=== PATIENT | female | born 1935 | race Caucasian/White ===

== ENCOUNTER 2016-11-28 11:59 | Emergency (ER) | payer MEDICARE, MEDICAID ==
[~2016-11-28] VITALS: Ht 160 cm; Wt 64.5 kg
[~2016-11-28 11:59] MED LIST: ACET325T51 PO; ASPI-973 PO; AZTH50T PO; LACT1CAP44 PO; METO25TA99 PO; PRD1T PO; TRAM50TA2 PO; VERA240T97 PO
[2016-11-28 12:12] VITALS: BP 109/72; PULSE 92; RESP 16; O2SAT 94
--- NOTE | 2016-11-28 12:13 | ED.REPORT ---
HPI-General Illness Date of Service Nov 28, 2016 ED Provider: Scotty Luna.O. An 81 year old female with a history of hypertension, hypothyroidism, A-fib, and PE who presents to the ED via EMS due to vomiting for a few days. Associated symptoms include dizziness, nausea, diarrhea, and headache. Pt complains that she, "can't eat at all." She denies chest pain, abdominal pain, and dysuria. She feels like, "everything is spinning when I sit up." Her dizziness is not associated with head movement, it only occurs when she transitions from lying to standing. She was hospitalized 2 months ago (10/05/16 ) with severe anemia. Pt is a poor historian. Nursing Notes Stated Complaint: WEAKNESS Chief Complaint: Female Abdominal Pain Nursing Notes Reviewed: Yes Allergies: Coded Allergies: penicillin G (Verified Allergy, Severe, 10/05/16) Sulfa (Sulfonamide Antibiotics) (Unverified Allergy, Intermediate, Rash, Itching,, 10/05/16) azithromycin (Unverified Allergy, Intermediate, Rash, 10/05/16) atenolol (Unverified Allergy, Unknown, 10/05/16) doxepin (Unverified Allergy, Unknown, 10/05/16) hydrochlorothiazide (Unverified Allergy, Unknown, 10/05/16) isosorbide (Unverified Allergy, Unknown, 10/05/16) losartan (Unverified Allergy, Unknown, 10/05/16) triamterene (Unverified Allergy, Unknown, 10/05/16) KAIDEN Inhibitors (Unverified Adverse Reaction, Unknown, 10/05/16) labetalol (Unverified Adverse Reaction, Unknown, 10/05/16) nitrofurantoin (Unverified Adverse Reaction, Unknown, Rash, 10/05/16) Uncoded Allergies: ANTIBIOTICS (Allergy, Unknown, UNCLEAR, 05/22/14) Scheduled Aspirin (Aspirin) 81 Mg Tablet 81 MG PO DAILY Azathioprine (Azathioprine) 50 Mg Tablet 50 MG PO DAILY Lactobacillus Acidophilus (Acidophilus Lactobacillus) 1 Each Capsule 2 EACH PO BID take x 7 days (start date 09/28/16) Metoprolol Succinate ER (Metoprolol Succinate ER) 25 Mg Tab.er.24h 25 MG PO DAILY PredniSONE (PredniSONE) 1 Mg Tab 3 MG PO DAILY Verapamil ER (Verapamil ER) 240 Mg Tber 120 MG PO DAILY Scheduled PRN Acetaminophen (Acetaminophen) 325 Mg Tablet 650 MG PO Q4H PRN PRN For Pain Tramadol (Tramadol) 50 Mg Tablet 50 MG PO Q4H PRN PRN For Pain General Time Seen by MD: 12:12 Chief Complaint Vomiting Hx Obtained From: Patient, EMS Arrived By: Ambulance Sudden in Onset?: Yes Onset Occurred: 5 days ago Symptom Duration: Since onset Severity: Current: No pain currently Past Medical History Past Medical History Notes: PCP: Dr. Froy Jama Past Medical History h/o Bilateral pulmonary embolism, diagnosed October 2014, treated with warfarin h/o atrial fibrillation Hypertension Hypothyroidism. Hyperlipidemia. h/o Autoimmune hepatitis, on chronic prednisone and azathioprine therapy Reports: Thyroid disease Past Surgical History bilateral knee surgeries Reports: Cataract surgery Reports: Carpal tunnel Family History CHF Pt's mother, daughter, and son have CAD Reports: Coronary artery disease, Stroke Smoking History Never Smoker Social History Drug Use: Denies drug use Other Social History: Good social support, Local resident Ambulatory Status Independent Review of Systems Full Review of Systems Cardiovascular: Denies: Chest pain GI: Reports: Diarrhea, Nausea, Vomiting, Denies: Abdominal pain Female: Denies: Dysuria Neurologic: Reports: Headache Complete sys rev & neg: except as marked. Physical Exam Vital Signs Vital Signs Date Time Temp Pulse Resp B/P Pulse Ox O2 Delivery O2 Flow Rate FiO2 11/28/16 12:12 36.7 92 16 109/72 94 Room Air Initial VS: Reviewed Head / Eyes: Atraumatic, Normocephalic, PERRL ENT: Mucous membranes moist, Conjunctiva normal, No scleral icterus Neck: Supple, Non-tender, Full range of motion Respiratory: Breath sounds normal, Clear to auscultation, No respiratory distress Cardiovascular: Regular rate & rhythm, Heart sounds normal, Intact distal pulses Abdomen / GI: Soft, Non-tender, No guarding, No rebound, No distention Extremities: Vascular intact, Neuro intact, No swelling, No tenderness Skin: Warm, Dry, No cyanosis General/Constitutional: Cooperative Alertness: Positive: Confused Distress / Hydration: Positive: Dehydration mild Interpretation & Diagnostics Lab Results Interpretation Result Diagram: 11/28/16 1345 11/28/16 1345 Test 11/28/16 13:45 White Blood Count 8.5th/mm3 (3.8-10.1) Red Blood Count 4.59mil/mm3 (3.90-5.20) Hemoglobin 15.1g/dL (12.0-15.6) Hematocrit 46.0% (35.0-46.0) Mean Corpuscular Volume 100.2fL (81-100) Mean Corpuscular Hemoglobin 32.9pg (27.0-35.0) Mean Corpuscular Hemoglobin Concent 32.8% (32.0-37.0) Red Cell Distribution Width 16.4% (12.3-15.4) Platelet Count 222bil/L (150-400) Neutrophils (%) (Auto) 84.5% (40-74) Lymphocytes (%) (Auto) 7.5% (14-46) Monocytes (%) (Auto) 5.9% (4-12) Eosinophils (%) (Auto) 1.3% (0-5) Basophils (%) (Auto) 0.4% (0-3) Sodium Level 138mEq/L (134-144) Potassium Level 4.9mEq/L (3.5-5.2) Chloride Level 99mEq/L (97-108) Carbon Dioxide Level 24mmol/L (18-29) Blood Urea Nitrogen 29mg/dL (8-27) Creatinine 1.07mg/dL (0.57-1.00) Estimat Glomerular Filtration Rate 70mL/min (>59) Glucose Level 91mg/dL (60-99) Calcium Level 9.1mg/dL (8.5-10.1) Magnesium Level 1.9mg/dL (1.6-2.6) Total Bilirubin 0.6mg/dL (0.0-1.2) Aspartate Amino Transf (AST/SGOT) 29U/L (0-50) Alanine Aminotransferase (ALT/SGPT) 13U/L (0-32) Alkaline Phosphatase 57U/L (25-165) Total Protein 7.4g/dL (6.4-8.4) Albumin 3.9g/dL (3.4-5.0) Lipase 22U/L (13-60) Hold Mullins Top Tube Received (Received) Re-Eval/Medical Decision Counseled Regarding: Diagnosis, Lab results, Need for follow-up, When/why to return to ED Discharge & Departure Primary Impression: Diarrhea Disposition: Home Discharge Condition All VS Reviewed: Yes Condition: Stable Referrals: Preston Juarez MD (PCP) Care Transferred to: [facility] Transferred at: 15:00 Scribe Attestation Portion of this note were transcribed by Leon Suazo. I, Dr. Brown, personally performed the history, physical exam, and medical decision-making: I reviewed and confirmed the accuracy for the information in the transcribed note. Signed by: naldo Munoz, 11/28/16 1500 copies to: Preston Juarez MD, Timothy S DO Nov 28, 2016 12:13 LEON SUAZO Nov 28, 2016 12:20
[2016-11-28 13:52] LABS: BASOPHILS % (AUTO) 0.4 % (0-3); EOSINOPHILS % (AUTO) 1.3 % (0-5); MONOCYTES % (AUTO) 5.9 % (4-12); Mean Corpuscular Hemoglobin 32.9 pg (27.0-35.0); Mean Corpuscular Volume 100.2 fL (81-100); NEUTROPHILS % (AUTO) 84.5 % (40-74); Platelet Count 222 bil/L (150-400)
[2016-11-28 14:26] LABS: Magnesium 1.9 mg/dL (1.6-2.6)
[2016-11-28] MEDS ORDERED: 0.9% Sodium Chloride 1,000 ML IV ONE (15:05)
--- NOTE | 2016-11-28 15:25 | DRSVH ---
PROCEDURE: CT BRAIN WITHOUT CONTRAST ([id number]) INDICATIONS: dizziness, falls TECHNIQUE: Noncontrast 4.5 mm thick angled axial sections acquired from the foramen magnum to the vertex, with c oronal reformats. COMPARISON: [facility], CT, BRAIN W/O CONTRAST, 12/14/2012, 19:00. [facility], CT, CT BRAIN WO CON, 10/05/2016, 17:51. FINDINGS: Image quality: Excellent. CSF spaces: Basal cisterns are patent. No extra-axial fluid collections. The ventricles are symmet edwina in size. There is mild cerebral volume loss, with resultant ventricular and sulcal prominence. Brain: No intracranial hemorrhage, mass, or mass effect. There are scattered subcortical, periven tricular and deep white matter hypodensities consistent with moderate chronic small vessel ischemic c hanges. There is intracranial internal carotid artery atherosclerosis. Skull and face: Calvarium and visualized facial bones demonstrate no acute fractures. There is oste openia with heterogeneous appearance of the visualized osseous structures most prominent in the front al bones. Findings are similar to the prior studies. Sinuses: Visualized sinuses and mastoids are clear. IMPRESSION: 1. No acute intracranial abnormality. 2. Moderate chronic white matter small vessel ischemic changes and mild cerebral volume loss. 3. Diffuse osteopenia. Dictated by: Jovany Salinas M.D. on 11/28/2016 at 15:21 Approved by: Jovany Salinas M.D. on 11/28/2016 at 15:24
--- NOTE | 2016-11-28 15:55 | NUR ---
Evaluation completed. Please go to "Notes" then click on "Assessments and Notes" (bottom left corner of screen). Then select appropriate discipline tab on top of screen.
--- NOTE | 2016-11-28 16:48 | DRSVH ---
PROCEDURE: X-RAY CHEST ONE VIEW, PORTABLE ([id number]) INDICATIONS: weakness TECHNIQUE: One view of the chest was acquired. COMPARISON: [facility], CT, CT ABD PELVIS W CON, 10/05/2016, 17:51. [facility], CR, XR CHEST 2VW, 09/05/2016, 16:16. [facility], CR, XR CHEST 2V AP/PA AND LAT, , 8:05 AM. [facility], CR, XR CHEST 1VW (PORTABLE), 10/05/2016, 16:12. FINDINGS: Surgical changes and devices: None. Lungs and pleura: There is a peripheral left basilar opacity consistent with consolidation or pleura l thickening. There is hyperinflation of the lungs with flattening of the hemidiaphragms compatible w ith COPD. there is mild blunting of right costophrenic angle consistent with a small effusion or pleu ral thickening. Mediastinum: Mediastinal contours appear unchanged. Heart size is enlarged. Bones and chest wall: There are multiple healed bilateral rib fractures as well as severe degenerativ e changes in the right shoulder. Overlying soft tissues appear unremarkable. IMPRESSION: 1. Peripheral left basilar opacity consistent with pleural thickening or consolidation. Recommend f ollowup to demonstrate resolution or further evaluation with CT. 2. Findings compatible with COPD redemonstrated. 3. Small right pleural effusion versus pleural thickening. Dictated by: Jovany Salinas M.D. on 11/28/2016 at 16:43 Approved by: Jovany Salinas M.D. on 11/28/2016 at 16:45
[2016-11-28 17:27] VITALS: BP 100/65; PULSE 84; RESP 20; O2SAT 97
[2016-11-28 17:30] LABS: APPEARANCE,URINE CLEAR (CLEAR,HAZY); COLOR,URINE YELLOW (YELLOW); OCCULT BLOOD,URINE LARGE (NEGATIVE); PH,URINE 5.5 (5.0-8.0); UROBILINOGEN,URINE NORMAL (NORMAL)
[2016-11-28] MEDS ORDERED: ONDA8TAB10 PO (19:27)
[2016-11-28 19:39] VITALS: BP 114/76; PULSE 68; RESP 18; O2SAT 96
== END 2016-11-28 19:39 | disposition home or self-care (01) ==
LOC: SED 11:59 → EDBD 11:59 → SED 19:39
DX: R19.7 Diarrhea, unspecified (principal); R53.1 Weakness; F03.90 Unspecified dementia, unspecified severity, without behavioral disturbance, psychotic disturbance, mood disturbance, and anxiety; R42 Dizziness and giddiness; R11.0 Nausea; R51 Headache; I48.91 Unspecified atrial fibrillation; E03.9 Hypothyroidism, unspecified; I10 Essential (primary) hypertension; E78.5 Hyperlipidemia, unspecified; E07.9 Disorder of thyroid, unspecified; Z86.711 Personal history of pulmonary embolism; Z91.81 History of falling; Z79.82 Long term (current) use of aspirin; Z88.0 Allergy status to penicillin; Z88.2 Allergy status to sulfonamides; Z88.1 Allergy status to other antibiotic agents; Z88.8 Allergy status to other drugs, medicaments and biological substances
CPT/HCPCS: 36415; 70450; 71010; 80053; 81001; 83690; 83735; 84484; 85025; 90791; 93005; 96360; 97161; 99285; G8978; G8979; J7030

== ENCOUNTER 2017-05-23 18:16 | Inpatient (IN) | payer MEDICARE, MEDICAID ==
[~2017-05-23] VITALS: Ht 157.5 cm; Wt 63.6 kg
[~2017-05-23 18:16] MED LIST changes: +ONDA8TAB10 PO
[2017-05-23 18:29] VITALS: BP 109/61; PULSE 75; RESP 17; O2SAT 96
--- NOTE | 2017-05-23 19:07 | ED.REPORT ---
HPI-General Illness Date of Service May 23, 2017 ED Provider: Alfonso Camarillo DO Pt is an 82 y/o female w/ a hx of a-fib, HTN, prior PE, presenting to the ED with her daughter c/o SOB onset 1 week ago. She c/o associated dyspnea on exertion, fatigue, increased bilateral lower extremity edema R>L, bilateral calf pain, orthopnea. Pt denies CP, fever, cough. The patient is on oxygen at night. She is taking abx for a UTI currently. She was previously on Warfarin but this was stopped due to an abdominal hematoma and there is no plan of restarting it. She is taking aspirin daily. The patient also takes 20 mg Lasix daily. There is no diagnosed history of COPD. She is followed by Cyndi Rodriguez for cardiology. Nursing Notes Stated Complaint: SWOLLEN LEGS, SHORTNESS OF BREATH, FATIGUE Chief Complaint: General Complaint Nursing Notes Reviewed: Yes Allergies: Coded Allergies: penicillin G (Verified Allergy, Severe, 10/05/16) Sulfa (Sulfonamide Antibiotics) (Unverified Allergy, Intermediate, Rash, Itching,, 10/05/16) azithromycin (Unverified Allergy, Intermediate, Rash, 10/05/16) atenolol (Unverified Allergy, Unknown, 10/05/16) doxepin (Unverified Allergy, Unknown, 10/05/16) hydrochlorothiazide (Unverified Allergy, Unknown, 10/05/16) isosorbide (Unverified Allergy, Unknown, 10/05/16) losartan (Unverified Allergy, Unknown, 10/05/16) triamterene (Unverified Allergy, Unknown, 10/05/16) KAIDEN Inhibitors (Unverified Adverse Reaction, Unknown, 10/05/16) labetalol (Unverified Adverse Reaction, Unknown, 10/05/16) nitrofurantoin (Unverified Adverse Reaction, Unknown, Rash, 10/05/16) Uncoded Allergies: ANTIBIOTICS (Allergy, Unknown, UNCLEAR, 05/22/14) Scheduled Aspirin (Aspirin) 81 Mg Tablet 81 MG PO DAILY Azathioprine (Azathioprine) 50 Mg Tablet 50 MG PO DAILY Ciprofloxacin (Cipro) 500 Mg Tablet 500 MG PO BID Metoprolol Succinate ER (Metoprolol Succinate ER) 25 Mg Tab.er.24h 25 MG PO DAILY PredniSONE (PredniSONE) 1 Mg Tab 3 MG PO DAILY Verapamil ER (Verapamil ER) 240 Mg Tber 120 MG PO DAILY Scheduled PRN Acetaminophen (Acetaminophen) 325 Mg Tablet 650 MG PO Q4H PRN PRN For Pain General Time Seen by MD: 19:05 Chief Complaint Breathing problem Hx Obtained From: Patient, Daughter Arrived By: Walk-in Sudden in Onset?: No Onset Occurred: 1 week ago Symptom Duration: Since onset Severity: Current: No pain currently Severity: Maximum: No pain Past Medical History Past Medical History Notes: PCP: Dr. Mcduffie Monotype Setter: Anastasia Rodriguez Past Medical History h/o Bilateral pulmonary embolism, diagnosed October 2014, treated with warfarin h/o atrial fibrillation Hypertension Hypothyroidism. Hyperlipidemia. Rheumatoid arthritis h/o Autoimmune hepatitis, on chronic prednisone and azathioprine therapy Reports: Thyroid disease Past Surgical History bilateral knee surgeries Reports: Cataract surgery Reports: Carpal tunnel Family History CHF Pt's mother, daughter, and son have CAD Reports: Coronary artery disease, Stroke Smoking History Never Smoker Social History Drug Use: Denies drug use Other Social History: Good social support, Local resident Ambulatory Status Independent Review of Systems Full Review of Systems Constitutional: Reports: Fatigue, Denies: Fever Respiratory: Reports: Shortness of breath, Denies: Non-productive cough Cardiovascular: Reports: Dyspnea on exertion, Edema, Orthopnea, Denies: Chest pain Musculoskeletal: Reports: Extremity pain, Extremity swelling Complete sys rev & neg: except as marked. Physical Exam Vital Signs Vital Signs Date Time Temp Pulse Resp B/P Pulse Ox O2 Delivery O2 Flow Rate FiO2 05/23/17 23:14 89 18 131/89 94 Room Air 05/23/17 18:29 36.6 75 17 109/61 96 Room Air Initial VS: Reviewed, Vital signs normal Head / Eyes: Atraumatic, Normocephalic ENT: Mucous membranes moist, Conjunctiva normal, No scleral icterus Neck: Supple, Full range of motion Abdomen / GI: Soft, Non-tender Skin: Warm, Dry, No cyanosis Neurologic: Alert, Oriented, Nonfocal Psychiatric: Mood/affect normal, Behavior normal, Normal thought content General/Constitutional: Awake, Alert, No acute distress, Cooperative, Not toxic appearing Respiratory / Chest: No respiratory distress, No retractions, No stridor Inspiratory rales bilaterally at bases, L>R Cardiovascular: Heart rate NL, Heart sounds NL, No murmurs Heart Rate / Rhythm: Positive: Irreg irregular rhythm Trace edema bilaterally, R>L Lower Extremity / Pelvis / MS: No deformity, Neurologic intact, Vascular intact Trace edema bilaterally, R>L Calf pain bilaterally, R>L Interpretation & Diagnostics Lab Results Interpretation Result Diagram: 05/25/175 05/25/175 Test 05/23/17 19:50 05/23/17 22:05 Neutrophils (%) (Auto) 78.9% (40-74) Lymphocytes (%) (Auto) 10.0% (14-46) Monocytes (%) (Auto) 8.7% (4-12) Eosinophils (%) (Auto) 2.0% (0-5) Basophils (%) (Auto) 0.2% (0-3) Hemoglobin A1c 5.7% (4.8-5.6) Magnesium Level 2.0mg/dL (1.6-2.6) Total Bilirubin 0.4mg/dL (0.0-1.2) Aspartate Amino Transf (AST/SGOT) 27U/L (0-50) Alanine Aminotransferase (ALT/SGPT) 16U/L (0-32) Alkaline Phosphatase 55U/L (25-165) Troponin T < 0.010ug/L (0.0-0.011) Pro-B-Type Natriuretic Peptide 2071pg/mL (0-738) Total Protein 7.9g/dL (6.4-8.4) Albumin 4.0g/dL (3.4-5.0) Thyroid Stimulating Hormone (TSH) 4.650uIU/mL (0.450-4.500) Urine Color Yellow (YELLOW) Urine Appearance Hazy (CLEAR,HAZY) Urine pH 6.0 (5.0-8.0) Urine Specific [place] 1.010 (1.003-1.035) Urine Protein Tracemg/dL (NEG,TRACE) Urine Glucose (UA) Negativemg/dL (NEGATIVE) Urine Ketones Negativemg/dL (NEGATIVE) Urine Occult Blood Moderate (NEGATIVE) Urine Nitrite Negative (NEGATIVE) Urine Bilirubin Negative (NEGATIVE) Urine Urobilinogen Normalmg/dL (NORMAL) Urine Leukocyte Esterase Trace (NEGATIVE) Urine RBC 11-50/hpf (0-2) Urine WBC 11-50/hpf (0-5) Urine Epithelial Cells Moderate/hpf (NONE-MOD) Urine Crystals None seen (NONE SEEN) Urine Bacteria Few/hpf (NONE-FEW) Urine Hyaline Casts Occasional/lpf (NONE) Urine Granular Casts None seen (NONE SEEN) Urine Waxy Casts None seen (NONE SEEN) Urine Red Blood Cell Casts None seen (NONE SEEN) Urine White Blood Cell Casts None seen (NONE SEEN) Urine Mucus None seen (None Seen) Urine Trichomonas None seen (NONE SEEN) Urine Yeast None (NONE SEEN) Urinalysis Comment None Urine Culture Reflexed Indicated Laboratory Tests 72 Hours Test 05/23/17 19:50 05/23/17 22:05 White Blood Count 8.4th/mm3 (3.8-10.1) Red Blood Count 4.25mil/mm3 (3.90-5.20) Hemoglobin 14.6g/dL (12.0-15.6) Hematocrit 42.5% (35.0-46.0) Mean Corpuscular Volume 100.0fL (81-100) Mean Corpuscular Hemoglobin 34.4pg (27.0-35.0) Mean Corpuscular Hemoglobin Concent 34.4% (32.0-37.0) Red Cell Distribution Width 14.4% (12.3-15.4) Platelet Count 173bil/L (150-400) Neutrophils (%) (Auto) 78.9% (40-74) Lymphocytes (%) (Auto) 10.0% (14-46) Monocytes (%) (Auto) 8.7% (4-12) Eosinophils (%) (Auto) 2.0% (0-5) Basophils (%) (Auto) 0.2% (0-3) Sodium Level 135mEq/L (134-144) Potassium Level 5.1mEq/L (3.5-5.2) Chloride Level 94mEq/L (97-108) Carbon Dioxide Level 24mmol/L (18-29) Blood Urea Nitrogen 40mg/dL (8-27) Creatinine 1.01mg/dL (0.57-1.00) Estimat Glomerular Filtration Rate 75mL/min (>59) Glucose Level 91mg/dL (60-99) Hemoglobin A1c 5.7% (4.8-5.6) Calcium Level 9.2mg/dL (8.5-10.1) Magnesium Level 2.0mg/dL (1.6-2.6) Total Bilirubin 0.4mg/dL (0.0-1.2) Aspartate Amino Transf (AST/SGOT) 27U/L (0-50) Alanine Aminotransferase (ALT/SGPT) 16U/L (0-32) Alkaline Phosphatase 55U/L (25-165) Troponin T < 0.010ug/L (0.0-0.011) Pro-B-Type Natriuretic Peptide 2071pg/mL (0-738) Total Protein 7.9g/dL (6.4-8.4) Albumin 4.0g/dL (3.4-5.0) Thyroid Stimulating Hormone (TSH) 4.650uIU/mL (0.450-4.500) Urine Color Yellow (YELLOW) Urine Appearance Hazy (CLEAR,HAZY) Urine pH 6.0 (5.0-8.0) Urine Specific [place] 1.010 (1.003-1.035) Urine Protein Tracemg/dL (NEG,TRACE) Urine Glucose (UA) Negativemg/dL (NEGATIVE) Urine Ketones Negativemg/dL (NEGATIVE) Urine Occult Blood Moderate (NEGATIVE) Urine Nitrite Negative (NEGATIVE) Urine Bilirubin Negative (NEGATIVE) Urine Urobilinogen Normalmg/dL (NORMAL) Urine Leukocyte Esterase Trace (NEGATIVE) Urine RBC 11-50/hpf (0-2) Urine WBC 11-50/hpf (0-5) Urine Epithelial Cells Moderate/hpf (NONE-MOD) Urine Crystals None seen (NONE SEEN) Urine Bacteria Few/hpf (NONE-FEW) Urine Hyaline Casts Occasional/lpf (NONE) Urine Granular Casts None seen (NONE SEEN) Urine Waxy Casts None seen (NONE SEEN) Urine Red Blood Cell Casts None seen (NONE SEEN) Urine White Blood Cell Casts None seen (NONE SEEN) Urine Mucus None seen (None Seen) Urine Trichomonas None seen (NONE SEEN) Urine Yeast None (NONE SEEN) Urinalysis Comment None Urine Culture Reflexed Indicated ECG Interpretation ECG Interpretation: Atrial flutter rate 77 Unchanged from prior Time: 20:03 Interpreted by: ED physician Normal ECG Interpretation: No acute ischemic changes X-Ray Chest Interpretation Chest Xray Interpretation: IMPRESSION: 1. Question mild CHF. 2. Possible small left effusion. 3. COPD. 4. Old rib fractures bilaterally. Dictated by: Aelah Ugalde M.D. on 05/23/2017 at 19:32 Approved by: Aleah Ugalde M.D. on 05/23/2017 at 19:36 View: Portable, 1 view Interpretation / Wet Read by: Interpret - Radiologist US Focused Lower Ext Venous IMPRESSION: No DVT in the lower extremities. Dictated by: Aleah Ugalde M.D. on 05/23/2017 at 22:04 Approved by: Aleah Ugalde M.D. on 05/23/2017 at 22:05 Exam Performed by: [facility] Exam Type: Diagnostic Clinical Category: Initial exam Exam Interpreted by: [facility] pract Re-Eval/Medical Decision Med Decision/Clinical Course 82-year-old female presents with increasing weakness, leg swelling, and shortness of breath. She has a history of atrial fibrillation and a pulmonary embolus previously, but is not on anticoagulation due to complications resulting in a hematoma. DVT was ruled out with bilateral lower extremity Doppler. She is a very difficult IV start and unfortunately after we finally got one her IV infiltrated and she was not able to get the contrast for a pulmonary embolus study. It is less likely as her lower extremity Doppler returned negative. Her EKG shows atrial flutter without evidence of ischemia. A more likely explanation for her symptoms would be heart failure. She is on Lasix 20 mg daily but she states it does not make her urinate significantly. Her chest x-ray shows signs of mild congestive heart failure and her BNP is elevated. I treated her with 40 of IV Lasix in her smaller peripheral IV here, and she will be admitted for treatment of heart failure and consideration of pulmonary embolus evaluation Time of Eval: 22:42 Re-Evaluation/Progress Note: Pt rechecked. The patient is a tough IV start and the AC IV blew out while about to obtain the chest CTA. She is declining any more attempts to have an IV started. Discussed discharge vs admission. Informed the patient that there is a chance of sudden from PE. She initially does not want to be admitted but finally agrees to admission if she doesn't receive any more pokes. Counseled Regarding: Diagnosis, Lab results, Need for admission Discharge & Departure Primary Impression: CHF exacerbation Congestive heart failure type: unspecified congestive heart failure type Qualified Code: I50.9 - Heart failure, unspecified Additional Impressions: Shortness of breath Lower extremity edema Laterality: bilateral Qualified Code: R60.0 - Localized edema Generalized weakness Chronic UTI Ruled Out: Deep venous thrombosis Disposition: ADMITTED TO HOSPITAL Discharge Condition All VS Reviewed: Yes Condition: Stable Referrals: Preston Juarez MD (PCP) Scribe Attestation Portions of this note were transcribed by Waldo Gandhi. I, Dr. Camarillo personally performed the history, physical exam and medical decision-making; I reviewed and confirmed the accuracy of the information in the transcribed note. copies to: Preston Juarez MD, Gary R DO May 23, 2017 19:07 WALDO GNADHI May 23, 2017 19:09
--- NOTE | 2017-05-23 19:38 | DRSVH ---
PROCEDURE: X-RAY CHEST ONE VIEW, PORTABLE ([id number]) INDICATIONS: sob TECHNIQUE: One view of the chest was acquired. COMPARISON: [facility], CR, XR CHEST 2VW, 04/18/2017, 12:22. [facility], CR , CHEST 1VW (PORTABLE), 05/19/2014, 0:21. [facility], CR, XR CHEST 1VW (PORTABLE), 017, 16:03. FINDINGS: Surgical changes and devices: None. Lungs and pleura: Hyperinflation compatible with COPD. Blunting of the left costophrenic angle is un changed. There is diffuse interstitial infiltrate suggesting mild pulmonary edema. No pneumothorax. Mediastinum: Mediastinal contours appear normal. Heart size is mildly increased. Bones and chest wall: Multiple old rib fractures are noted bilaterally. No suspicious bony lesions. Overlying soft tissues appear unremarkable. Severe shoulder joint degeneration bilaterally. IMPRESSION: 1. Question mild CHF. 2. Possible small left effusion. 3. COPD. 4. Old rib fractures bilaterally. Dictated by: Aleah Ugalde M.D. on 05/23/2017 at 19:32 Approved by: Aleah Ugalde M.D. on 05/23/2017 at 19:36
[2017-05-23 19:59] LABS: BASOPHILS % (AUTO) 0.2 % (0-3); MONOCYTES % (AUTO) 8.7 % (4-12); Mean Corpuscular Hemoglobin 34.4 pg (27.0-35.0); NEUTROPHILS % (AUTO) 78.9 % (40-74); Platelet Count 173 bil/L (150-400)
[2017-05-23 20:34] LABS: TROPONIN T < 0.010 ug/L (0.0-0.011)
--- NOTE | 2017-05-23 22:07 | DRSVH ---
PROCEDURE: US VENOUS LEG DUPLEX BILATERAL INDICATIONS: leg pain and swelling bilt R>L, h/o PE off anticoa TECHNIQUE: Real-time imaging, as well as color and pulse Doppler interrogation, were performed of the deep veins of both legs from the inguinal ligament to the popliteal fossa. COMPARISON: None. FINDINGS: The deep veins are normally compressible, and free of intraluminal thrombus. Color and pu lse Doppler demonstrate normal phasic intravascular flow. There is normal augmentation response to d istal compression maneuver. IMPRESSION: No DVT in the lower extremities. Dictated by: Aleah Ugalde M.D. on 05/23/2017 at 22:04 Approved by: Aleah Ugalde M.D. on 05/23/2017 at 22:05
[2017-05-23 22:16] LABS: APPEARANCE,URINE HAZY (CLEAR,HAZY); COLOR,URINE YELLOW (YELLOW); OCCULT BLOOD,URINE MODERATE (NEGATIVE); UROBILINOGEN,URINE NORMAL (NORMAL)
[2017-05-23] MEDS ORDERED: Furosemide 10 mg/mL 4 mL Inj IVPUSH ONE (23:00)
[2017-05-23 23:14] VITALS: BP 131/89; PULSE 89; RESP 18; O2SAT 94
[2017-05-23] MEDS ORDERED: Alum-Mag Hydrox-Simeth 30 mL Suspension PO PRN (23:40)
[2017-05-23] MEDS ORDERED: Polyethylene Glycol (PEG) 17 Gm Powder PO PRN (23:40)
[2017-05-23] MEDS ORDERED: Ondansetron 2 mg/mL 2 mL Inj IVPUSH PRN (23:40)
[2017-05-23] MEDS ORDERED: Senna-Docusate 8.6-50 mg Tablet PO PRN (23:40)
[2017-05-24] VITALS (9 sets, daily range): BP systolic 91–133; BP diastolic 61–89; PULSE 60–107; RESP 17–23; O2SAT 95–98
[2017-05-24] MEDS: Sodium Chloride LOK Flush 10 mL Syringe IVFLUSH SCH ×3 (00:49→17:45)
[2017-05-24] MEDS: Heparin 5,000 Unit/mL Inj SUBQ SCH ×3 (01:09→17:45)
[2017-05-24] MEDS ORDERED: CIPR-231 PO (01:30)
--- NOTE | 2017-05-24 04:45 | PCM.HPMED ---
Subjective Date of Service May 23, 2017 Primary Provider: Admitting Physician: Kay Wing MD Primary Care Physician: Preston Juarez MD Attending Physician: Kay Wing MD Admit Status: From the Emergency Department, Full Admit Chief Complaint: Dyspnea. . History of Present Illness: Karin Jean Baptiste is an 82-year-old female with a past medical history significant for paroxysmal atrial fibrillation not on anticoagulation due to history of abdominal hematoma, prior bilateral pulmonary emboli, and hypertension who presents to [facility] emergency department with progressive shortness of breath 1 week. She reports that over the last week she has gradually became more short of breath and had increasing lower extremity edema. She has associated dyspnea on exertion, orthopnea, and fatigue. She denies vision changes, sore throat, congestion, chest pain, palpitations, paroxysmal nocturnal dyspnea, abdominal pain, nausea, vomiting, diarrhea or constipation. She has mild dysuria secondary to a UTI and is currently on ciprofloxacin 250 mg twice daily for which she has only been taking once daily. She does endorse subjective fever and chills. She has chronic palpitations with lightheadedness in the mornings. She is on 2 L of oxygen at night. She was previously on warfarin but this was stopped due to an abdominal hematoma and there is no plan of restarting it. She is taking aspirin daily. Of note, she plans on a watchman device insertion in June for CVA prophylaxis from left atrial appendage blood clots. Vital signs in the ER: Temperature 36.6. Pulse 75. Respiratory rate 17. Blood pressure 109/61. Pulse ox 96% on room air. PCP is Dr. Juarez. Audit Specialist is Dr. Wright at [facility]. . Review of Systems: A comprehensive review of systems was conducted with the patient and found to be negative except as above in the History of Present Illness. . Allergies Coded Allergies: penicillin G (Verified Allergy, Severe, 10/05/16) Sulfa (Sulfonamide Antibiotics) (Unverified Allergy, Intermediate, Rash, Itching,, 10/05/16) azithromycin (Unverified Allergy, Intermediate, Rash, 10/05/16) atenolol (Unverified Allergy, Unknown, 10/05/16) doxepin (Unverified Allergy, Unknown, 10/05/16) hydrochlorothiazide (Unverified Allergy, Unknown, 10/05/16) isosorbide (Unverified Allergy, Unknown, 10/05/16) losartan (Unverified Allergy, Unknown, 10/05/16) triamterene (Unverified Allergy, Unknown, 10/05/16) KAIDEN Inhibitors (Unverified Adverse Reaction, Unknown, 10/05/16) labetalol (Unverified Adverse Reaction, Unknown, 10/05/16) nitrofurantoin (Unverified Adverse Reaction, Unknown, Rash, 10/05/16) Uncoded Allergies: ANTIBIOTICS (Allergy, Unknown, UNCLEAR, 05/22/14) Home Medications Acetaminophen 650 mg every 4 hours as needed for pain. Aspirin 81 mg daily. Azathioprine 50 mg daily. Ciprofloxacin 500 mg twice a day. Metoprolol succinate 12.5 mg twice a day. Prednisone 3 mg daily. Verapamil 120 mg daily (Not clear if patient is on this medication and needs to be re-verified)!! . PMH 1. History of bilateral pulmonary embolism, diagnosed October 2014, treated with warfarin. 2. History of paroxysmal atrial fibrillation. 3. Hypertension. 4. Rheumatoid arthritis. 5. History of autoimmune hepatitis, on chronic prednisone and azathioprine therapy. . Surgical History 1. Bilateral knee arthroplasty. 2. Bilateral cataract extraction. 3. Left carpal tunnel release. . Family History Father who of leukemia. Son that as a child from nephritis. Another son that recently from a hemorrhagic CVA at 62 years age. One daughter with history of heart ablations but is otherwise healthy and another son who is healthy. . Social History Hx Alcohol Use: No Hx Substance Use: No Hx Tobacco Use: No Smoking Status: Never Smoker Additional Information She is 1. She has had 4 children. She currently lives alone but plans to move into [facility] living [facility] soon. . Exam Vital Signs Vital Sign - Last Date Time Temp Pulse Resp B/P Pulse Ox O2 Delivery O2 Flow Rate FiO2 05/23/17 23:14 89 18 131/89 94 Room Air 05/23/17 18:29 36.6 Exam General: Elderly female lying in bed and in no acute distress, well-developed, well-nourished, appropriately interactive. HEENT: Normocephalic, atraumatic. External ears without defect. Pupils equal, round, and reactive to light. Anicteric sclerae, moist conjunctivae, and no lid lag. Oropharynx free of erythema and cobble stoning with moist mucosa. Neck: Supple with full range of motion. No jugular venous distension. No bruits. No lymphadenopathy or thyromegaly. Cardiovascular: Irregularly irregular with soft systolic murmur at LUSB. No rubs or gallops appreciated. Pulmonary: Clear to auscultation in upper lung carlos, fine crackles at left base. No wheezes or rhonchi. Normal respiratory effort with no use of accessory muscles. Abdomen: Soft, nontender, nondistended, bowel sounds present. No hepatosplenomegaly or masses appreciated. Extremities: No clubbing or cyanosis. Trace pitting edema to ankles bilaterally. Skin: Normal temperature, turgor, and texture; no rash, ulcers, or subcutaneous nodules appreciated. Neurological: Cranial nerves grossly intact. Normal muscle strength, tone, and bulk. Reflexes, coordination, and sensory function within normal limits. No known gait impairment. Psychiatric: Normal mood and affect. Alert and oriented to person, place, and time. . Lab and Diagnostics Labs Item Value Date Time Calcium Level 9.2 mg/dL 05/23/171949 Total Bilirubin 0.4 mg/dL 05/23/171949 Aspartate Amino Transf (AST/SGOT) 27 U/L 05/23/171949 Alanine Aminotransferase (ALT/SGPT) 16 U/L 05/23/171949 Alkaline Phosphatase 55 U/L 05/23/171949 Troponin T < 0.010 ug/L 05/23/171949 Pro-B-Type Natriuretic Peptide 2071 pg/mL H 05/23/171949 Total Protein 7.9 g/dL 05/23/171949 Albumin 4.0 g/dL 05/23/171949 Result Diagram: 05/23/17194905/23/171949 Microbiology Urine culture pending. . X-Rays, CTs and MRIs X-RAY CHEST ONE VIEW, PORTABLE IMPRESSION: 1. Question mild CHF. 2. Possible small left effusion. 3. COPD. 4. Old rib fractures bilaterally. Dictated by: Aleah Ugalde M.D. on 05/23/2017 at 19:32 US VENOUS LEG DUPLEX BILATERAL IMPRESSION: No DVT in the lower extremities. Dictated by: Aleah Ugalde M.D. on 05/23/2017 at 22:04 . 12-lead ECG EKG: Atrial fibrillation/flutter, heart rate 77, normal axis, normal intervals , normal R-wave progression, no pathological Q waves or acute ischemic changes such as ST elevation or depression. . Cardiac Echo Impressions Previous Echocardiogram Interpretation Summary: There is mild concentric left ventricular hypertrophy. Left ventricular systolic function is normal without focal wall motion abnormalities. The ejection fraction is estimated to be 60-65%. Assessment of diastolic parameters indicates a relaxation abnormality of the left ventricle, consistent with normal filling pressures. The right ventricle is normal size. Right ventricular systolic function is mildly reduced. Right ventricular systolic pressure is normal. The left atrium is mildly dilated. Right atrial size is normal. There is moderate mitral annular calcification. There is mild prolapse of the anterior mitral valve leaflet. The mitral regurgitant jet is posteriorly directed, which is consistent with anterior leaflet pathology. There is mild mitral regurgitation. There is mild-moderate aortic regurgitation. There is no other significant valvular heart disease. The aortic root is normal size. Reading Physician:PM . Assessment & Plan Karin Jean Baptiste is an 82-year-old female with a past medical history significant for paroxysmal atrial fibrillation not on anticoagulation due to history of abdominal hematoma, prior bilateral pulmonary emboli, and hypertension who presents to [facility] emergency department with progressive shortness of breath 1 week. 1. Possible acute heart failure exacerbation, present on admission. Active. - Patient presented with progressive shortness of breath 1 week, dyspnea on exertion, increased lower extremity edema, orthopnea and fatigue. - The patient has a history of LV relaxation abnormality and diastolic CHF stage I, as above. - Ordered echocardiogram to asses for CHF. - EKG demonstrated atrial fibrillation without signs of ischemia and troponin negative. - Chest x-ray demonstrated possible mild CHF and small left effusion. - Venous Doppler ultrasound of bilateral lower extremities did not reveal any DVT, as above. - CTA was attempted, however, the patient's IV infiltrated therefore it was not completed. The patient is refusing any more needle sticks. Will need a BMP to monitor potassium and other electrolytes if continuing to diurese more aggressively than normal regimen. - BNP 2070. - Increase diuresis from Lasix PO 20 mg to Lasix IV 20 mg daily. - Continue metoprolol succinate 12.5 mg twice a day. - Ordered heart healthy diet. - Ordered daily standing weights, strict I&O's, and 2 L fluid restriction. - If truly a CHF exacerbation she will need CHF teaching. 2. Recent acute urinary tract infection, present on admission. - Patient was recently diagnosed with urinary tract infection in the outpatient setting. - Started on ciprofloxacin 250 mg twice a day, however, the patient was taking this incorrectly. Continue ciprofloxacin 250 mg twice a day 3 days to completely treat UTI. Chronic problems: 3. Paroxysmal atrial fibrillation, present on admission. Stable. - The patient has a history of abdominal hematoma and is no longer on warfarin. - Continue metoprolol succinate 12.5 mg twice daily and verapamil 120 mg daily ( not clear if patient is on this medication and needs to be re-verified)!! Currently rate controlled. - Continue aspirin 81 mg daily. 4. Hypertension, present on admission. Stable. - Continue metoprolol succinate 12.5 mg twice daily and verapamil 120 mg daily ( not clear if patient is on this medication and needs to be re-verified)!! 5. History of autoimmune hepatitis - Continue prednisone and azathioprine therapy. 6. Rheumatoid arthritis, present on admission. Stable. - Continue prednisone as above. PRN antiemetics: Zofran and Maalox. PRN bowel regimen: Senna and MiraLAX. PRN analgesics: Tylenol. Patient is admitted under inpatient status with expected length of stay greater than 2 midnights due to severity of presenting symptoms, risk of adverse event, and complexity of treatment plan. . VTE Prophylaxis: Sub-Q Heparin (Unfractionated) Resuscitation Status: CPR: Attempt Resuscitation Attending Statement Patient has been seen and examined by myself with biomedical analytical scientist and agree with above history, physical, assessment and plan. Rebecca Abdi DO May 23, 2017 23:49 Kay Wing MD May 24, 2017 06:13
--- NOTE | 2017-05-24 06:09 | NUR ---
Admit Pt admitted to [facility] Rm 1003 from ER at 0035. Pt came in wheel chair and was able to SBA to bed. Pt is alert/oriented x3 and making needs known. VSS on RA. IV SL. Pt complained of head ache 5/10 and requested only 325mg of Tylenol. Pt reported this to be effective. Pt placed on tele, Aflutter 80s. Pt is on a fluid restriction of 2L in 24 hrs. Pt wearing brief for some incontinence. Med rec completed with Daughter from memory, Verapamil dose will need to be confirmed before given today, will relay info to next nurse
[2017-05-24] MEDS ORDERED: Verapamil SR 120 mg ER12 Tablet PO SCH ×2 (08:30)
--- NOTE | 2017-05-24 08:40 | DRSVH ---
PROCEDURE: CT ANGIO CHEST PULMONARY EMBOLISM ([id number]) INDICATIONS: sob, h/o PE off anticoag TECHNIQUE: After the attempted administration of intravenous contrast it was noted that intravenous contrast inf iltration at the site of injection was occurring, and the injection was terminated immediately. Appr oximately 50 cc of nonionic iodinated contrast had infiltrated, and the patient was returned to the e mergency room for further evaluation. Subsequently the patient declined to proceed with this CT eval uation, and was admitted with the admitting physician knowledge double of the circumstance. COMPARISON: [facility], CT, CHEST ANGIO-PE, 10/15/2014, 17:13. FINDINGS: Image quality: Diagnostic quality imaging was not accomplished due to contrast extravasation at the s ite of injection and subsequent twice by the patient to not proceed with subsequent followup CT scann ing and completion of the study. IMPRESSION: Unsuccessful CT scanning as detailed in the technique section above. Patient declined to proceed with the examination. Dictated by: Markel Green M.D. on 05/24/2017 at 8:33 Approved by: Markel Green M.D. on 05/24/2017 at 8:38
[2017-05-24] MEDS: MeTOProlol XL 25 mg ER24 Tablet PO SCH ×2 (08:47→21:58)
[2017-05-24] MEDS: Furosemide 10 mg/mL 2 mL Inj IVPUSH SCH (08:47)
[2017-05-24] MEDS: predniSONE 1 mg Tablet PO SCH (08:48)
--- NOTE | 2017-05-24 12:30 | PCM.PNMED ---
Subjective Date of Service May 24, 2017 Subjective Patient feels better today. Will order echo Exam Vital Signs Vital Sign - Last Date Time Temp Pulse Resp B/P Pulse Ox O2 Delivery O2 Flow Rate FiO2 05/24/17 10:58 100 05/24/17 08:00 Supplement Oxygen 05/24/17 07:41 18 129/75 127/73 05/24/17 04:35 36.5 98 Intake and Output 05/23/17 05/23/17 05/24/17 Cumulative From/Thru 15:00 23:00 07:00 05/23/17 18:29 - 05/24/17 06:23 Intake Total 0 ml 0 ml Output Total 0 ml 0 ml Balance 0 ml 0 ml Intake Oral 0 ml 0 ml Output Urine Total 0 ml 0 ml # Bowel Movements 0 0 Exam PHYSICAL EXAM: GENERAL: Alert, not in distress, cooperative HEAD: atraumatic, normocephalic, no bruises. EYES: HYACINTH, EOMI, anicteric, able to fully open and close eyelids SKIN: Skin color normal, turgor normal. No visible rashes or lesions. EAR, NOSE, MOUTH, THROAT: Lips, oral mucosa, tongue gums, oropharynx are moist , pink, no lesions. Ears normal appearance, no lesions. NECK: supple ROM normal. RESPIRATORY: decreased lung sound . Good diaphragmatic excursion. CARDIAC: normal S1 and S2; no rubs, murmurs, or gallops; regular rate and rhythm ABDOMEN: Abdomen soft, non-tender. BS normal. No masses or organomegaly. MUSCULOSKELETAL: ROM full, muscles are not tender EXTREMITIES: no pitting edema in LE, no new deformities or skin discoloration. NEURO: Alert, oriented X 3, Sensation grossly intact., Cranial nerves II-XII intact, Grossly normal motor function. PULSES: 2+ radial, 2+ carotid REVIEW OF SYSTEMS: GENERAL: no malaise, no fevers., SEE HPI HEENT: Negative for frequent or significant headaches All other reviewed and negative other than HPI. IVs and Medications Medications Reviewed: Medications were reviewed in detail Lab and Diagnostics Result Diagram: 05/23/17 1950 05/24/17 0959 Microbiology Urine culture pending. . X-Rays, CTs and MRIs X-RAY CHEST ONE VIEW, PORTABLE IMPRESSION: 1. Question mild CHF. 2. Possible small left effusion. 3. COPD. 4. Old rib fractures bilaterally. Dictated by: Aleah Ugalde M.D. on 05/23/2017 at 19:32 US VENOUS LEG DUPLEX BILATERAL IMPRESSION: No DVT in the lower extremities. Dictated by: Aleah Ugalde M.D. on 05/23/2017 at 22:04 . 12-lead ECG EKG: Atrial fibrillation/flutter, heart rate 77, normal axis, normal intervals , normal R-wave progression, no pathological Q waves or acute ischemic changes such as ST elevation or depression. . Cardiac Echo Impressions Previous Echocardiogram Interpretation Summary: There is mild concentric left ventricular hypertrophy. Left ventricular systolic function is normal without focal wall motion abnormalities. The ejection fraction is estimated to be 60-65%. Assessment of diastolic parameters indicates a relaxation abnormality of the left ventricle, consistent with normal filling pressures. The right ventricle is normal size. Right ventricular systolic function is mildly reduced. Right ventricular systolic pressure is normal. The left atrium is mildly dilated. Right atrial size is normal. There is moderate mitral annular calcification. There is mild prolapse of the anterior mitral valve leaflet. The mitral regurgitant jet is posteriorly directed, which is consistent with anterior leaflet pathology. There is mild mitral regurgitation. There is mild-moderate aortic regurgitation. There is no other significant valvular heart disease. The aortic root is normal size. Reading Physician:PM . Assessment & Plan Karin Jean Baptiste is an 82-year-old female with a past medical history significant for paroxysmal atrial fibrillation not on anticoagulation due to history of abdominal hematoma, prior bilateral pulmonary emboli, and hypertension who presents to [facility] emergency department with progressive shortness of breath 1 week. 1. Possible acute on chronic diastolic heart failure exacerbation, present on admission. Active. - Patient presented with progressive shortness of breath 1 week, dyspnea on exertion, increased lower extremity edema, orthopnea and fatigue. - The patient has a history of LV relaxation abnormality and diastolic CHF stage I, as above. - Ordered echocardiogram to asses for CHF. - EKG - personally reviewed - significant for atrial fibrillation without signs of ischemia; - troponin negative. - Chest x-ray - personally reviewed - significant for mild congestion - Venous Doppler ultrasound of bilateral lower extremities did not reveal any DVT - CTA was attempted, however, the patient's IV infiltrated therefore it was not completed. - BNP 2070. Plan -c/w current meds - ECHO 2. Recent acute urinary tract infection, present on admission. - Patient was recently diagnosed with urinary tract infection in the outpatient setting. - Started on ciprofloxacin 250 mg twice a day, however, the patient was taking this incorrectly. Continue ciprofloxacin 250 mg twice a day 3 days to completely treat UTI. 3. Paroxysmal atrial fibrillation, present on admission. Stable. - The patient has a history of abdominal hematoma and is no longer on warfarin. Plan - c/w current meds 4. Hypertension, present on admission. Stable. -stable - c/w current meds 5. History of autoimmune hepatitis - stable - Continue prednisone and azathioprine therapy. 6. Rheumatoid arthritis, present on admission. - Stable. - Continue prednisone PRN antiemetics: Zofran and Maalox. PRN bowel regimen: Senna and MiraLAX. PRN analgesics: Tylenol. Patient is admitted under inpatient status with expected length of stay greater than 2 midnights due to severity of presenting symptoms, risk of adverse event, and complexity of treatment plan. . VTE Prophylaxis: Sub-Q Heparin (Unfractionated) VTE Mechanical Devices: Intermittant Pneumatic CD Resuscitation Status: CPR: Attempt Resuscitation Geovanny Sharp MD May 24, 2017 12:29
--- NOTE | 2017-05-24 16:12 | DRSVH ---
[facility] [address] [place] [address] Echocardiogram Report Name: ROSAURA GAXIOLA te: 05/24/2017 Height: 62 in Hospital Exam Location: [facility] Weight: 14 1 lb Gender: Female BSA: 1.6 m2 : 1935 Age: 82 yrs BP: 129/80 mmHg Reason For Study: DYSPNEA Ordering Physician: Juan Manuel Moe Performed By: Kaykay Morales Referring Physician: SHALINI GOMEZ Interpretation Summary The ejection fraction is estimated to be 55-60%. The left atrium is severely dilated. There is moderate mitral annular calcification. There is mild mitral valve prolapse. There is severe mitral regurgitation. Flow reversal noted in pulmonary veins consistent with significant mitral regurgitation. The aortic valve is mildly calcified. There is no hemodynamically significant valvular aortic stenosis. There is mild aortic regurgitation. There is mild to moderate tricuspid regurgitation. Mild pulmonary artery dilation. Compared to prior echo report on 2014, changes are noted. Procedure: A two-dimensional transthoracic echocardiogram with color flow and Doppler was performed. The study quality was technically good. Comparison is made with the echocardiogram of 10/16/14. The patient was in atrial fibrillation with heart rates between 82 and 114 bpm during the exam. Left Ventricle: The left ventricle is normal in size, wall thickness, and systolic function without any focal wall motion abnormalities. The ejection fraction is estimated to be 55-60%. There are no focal wall motion abnormalities. Diastolic function could not be accurately assessed due to atrial fibrillation. Right Ventricle: The right ventricle is normal in size, thickness and function. Atria: The left atrium is severely dilated. The right atrium is moderately dilated. There is no Doppler evidence for an interatrial shunt. Mitral Valve: There is moderate mitral annular calcification. The mitral valve leaflets appear thickened, but open well. There is mild mitral valve prolapse. There is severe mitral regurgitation. Flow reversal noted in pulmonary veins consistent with significant mitral regurgitation. Aortic Valve: The aortic valve is trileaflet. The aortic valve is mildly calcified. The aortic valve opens well. There is no hemodynamically significant valvular aortic stenosis. There is mild aortic regurgitation. Tricuspid Valve: The tricuspid valve is normal. There is mild to moderate tricuspid regurgitation. The right ventricular systolic pressure is estimated at least 28 mmHg assuming a right atrial pressure of 3 mm Hg. Pulmonic Valve: The pulmonic valve leaflets are thin and pliable; valve motion is normal. There is a trace or physiologic amount of pulmonic regurgitation. Great Vessels: The aortic root is normal size. The ascending aorta is normal in size. The aortic arch is normal in size. Mild pulmonary artery dilation. The IVC is of normal diameter and collapses greater than 50% with a sniff. This suggests a low right atrial pressure of 3 mm Hg. Pericardium/ Pleura There is a trace loculated pericardial effusion. There is no pleural effusion. MMode/2D Measurements & Calculations LVIDd: 5.0 cm RA long axis LVOT diam: 2.0 cm LVIDs: 3.7 cm LA A2 area: 22.8 cm AoV Opening FS: 25.9 % LA A4 area: 25.6 cm RA area EPSS: 1.1 cm LA length (vol) Ao root diam IVSd: 1.0 cm : 20.8 cm LVPWd: 0.98 cm LA vol: 97.9 ml RA vol asc Aorta Diam LA vol index : 63.3 ml RA Ao Arch Diam (Prox : 38.4 mm2 Trans): 2.5 cm IVC diam: 0.84 cm LV stark. diameter/BSA LV sys. diameter/BSA RVD1 (basal) RVD2 (mid): 1.9 cm (cm/m^2): 3.0 (cm/m^2): 2.2 Doppler Measurements & Calculations Ao V2 max MV E max xander Med Peak E' Xander TR max xander : 90.5 cm/sec : 79.2 cm/sec : 251.3 cm/sec Ao max P.3 mmHg E/E' med: 11.4 TR max P.3 mmHg Ao mean PG Lat Peak E' Xander PA V2 max: 57.6 cm/sec PA mean P.79 mmHg LVOT Max Xander E/E' lat: 6.4 PA Accel Time : 66.6 cm/sec E/e' average: 8.9 : 0.09 sec RAKEL(I,D): 2.5 cm sev ratio: 0.76 AI P1/2t : 620.5 msec AI dec slope : 162.6 cm/s2c Ao V2 mean LV V1 max PG PA V2 mean RAKEL indexed to BSA : 61.5 cm/sec : 42.6 cm/sec (cm^2/m^2): 1.5 Ao V2 VTI: 13.2 cm LV V1 VTI RAKEL(V,D): 2.4 cm2 : 10.0 cm Electronically signed by: Hero Vale on Reading Physician:05/24/2017 04:11 PM
--- NOTE | 2017-05-24 17:05 | NUR ---
BP Pts last BP was 91/61. MD notified and aware. No new orders at this time.
--- NOTE | 2017-05-24 17:44 | NUR ---
Social Work- Initial Assessment/ Multidisciplinary Rounds Data: See Initial Assessment and Advance Directive Intervention for additional information. Pt discussed in rounds. SW is following for HH needs at d/c. No orders have been received at this time. Pt is a 82 year old female admitted for CHF exacerbation per H&P. Pt's insurance is [facility] and [facility]. Pt's PCP is Preston Juarez MD. Pt's readmit risk score is not listed at this time. SW met with pt at bedside regarding discharge plan, SW role explained. Pt's designated blocker and cutter contact lens is daughter Melanie Bennett. Pt alert and oriented x3. Pt's capacity for self-care assessed. Pt resides in [place] with her family. Pt is mostly independent with ADLs and self-care, though she does receive assistance with medications, bathing, and houskeeping. Pt uses a four wheel walker at baseline. Pt has history with [facility] RN PT services. Pt has history at [facility]. Pt has CPR Advance Directive on file. SW provided Discharge planning Checklist and requested that pt contact SPECTROGRAPHIC ANALYST if needs identified. SW provided phone number and plan on whiteboard. Pt likely to d/c home with her daughter to transport via POV, R/O HH services given CHF diagnosis. Pt agreeable. SW will continue to follow. Assessment: Pt who is capable of self-care and who has KELLY caregivers Plan:Pt likely to d/c home with her daughter to transport via POV, R/O HH services given CHF diagnosis. SW will continue to follow. SALIMA Brooks Addendum: 05/24/17 at 5368 by HARIKA MOORE Amended: Links added.
--- NOTE | 2017-05-24 19:28 | NUR ---
AMbulation / SOB Pt ambulates SBA with own FWW. Slightly unsteady gait that improves after ambulating short distance. Pt c/o slight lightheaded and dizzyness. BP was low this afternoon MD aware. Per Pt SOB has decreased and she feels that she is ambulating with less fatigue. Care continues
[2017-05-25] VITALS (10 sets, daily range): BP systolic 79–131; BP diastolic 58–91; PULSE 74–109; RESP 16–18; O2SAT 90–99
[2017-05-25] MEDS: Heparin 5,000 Unit/mL Inj SUBQ SCH ×3 (01:00→17:17)
[2017-05-25] MEDS: Sodium Chloride LOK Flush 10 mL Syringe IVFLUSH SCH ×3 (01:00→17:17)
[2017-05-25 05:39] LABS: Mean Corpuscular Hemoglobin 34.5 pg (27.0-35.0); Mean Corpuscular Volume 101.2 fL (81-100)
[2017-05-25] MEDS: Furosemide 10 mg/mL 2 mL Inj IVPUSH SCH (09:50)
[2017-05-25] MEDS: predniSONE 1 mg Tablet PO SCH (09:53)
[2017-05-25] MEDS: MeTOProlol XL 25 mg ER24 Tablet PO SCH ×2 (09:54→16:49)
[2017-05-25] MEDS ORDERED: Vancomycin Inj 1,250 MG in 0.9% Sodium Chloride 250 ML IV ONE (10:25)
[2017-05-25] MEDS ORDERED: Vancomycin Dose per Pharmacist XX SCH (10:25)
--- NOTE | 2017-05-25 12:21 | NUR ---
Social Work- Readiness for D/C Data: EMR reviewed. Pt is on day 2 of hospitalization for CHF Exacerbation. Pt discussed in multidisciplinary rounds, pt is not medically stable for d/c. SW asked MD about HH services given pt's CHF diagnosis. MD feels that this is not indicated at this time. Pt has been using fww during this admission. Pt's KELLY CM is Adrianna Tomlinson CMA requested to fax clinicals. Pt will likely d/c home with family to transport via POV. No anticipated d/c needs, SW will continue to follow. Assessment: Pt who receives assistance from KELLY caregivers and family at home Plan: Pt is likely to d/c home with family assistance and KELLY caregiving. SW will continue to follow for d/c needs. Mady Jaimes MSW
--- NOTE | 2017-05-25 14:22 | PCM.PNMED ---
Subjective Date of Service May 25, 2017 Subjective Patient complains of generalized weakness. He was confused today in the morning. Discussed plan of care with patient's daughter. She would like the patient to be discharged home when patient improves. Urine culture grew enterococcus. Exam Vital Signs Vital Sign - Last Date Time Temp Pulse Resp B/P Pulse Ox O2 Delivery O2 Flow Rate FiO2 05/25/17 12:42 101 109/76 05/25/17 11:23 36.5 16 96 Room Air Intake and Output 05/24/17 05/24/17 05/25/17 Cumulative From/Thru 15:00 23:00 07:00 05/23/17 18:29 - 05/25/17 06:31 Intake Total 1358 ml 200 ml 1558 ml Output Total 500 ml 500 ml Balance 858 ml 200 ml 1058 ml Intake Oral 1358 ml 200 ml 1558 ml Output Urine Total 500 ml 500 ml # Voids 2 2 4 # Bowel Movements 0 0 0 Exam PHYSICAL EXAM: GENERAL: Alert, not in distress, HEAD: atraumatic, normocephalic EYES: EOMI, anicteric, able to fully open and close eyelids SKIN: Skin color normal, turgor normal. No visible rashes or lesions. EAR, NOSE, MOUTH, THROAT: Lips, oral mucosa, tongue are moist, pink, no lesions. Ears normal appearance, no lesions. NECK: supple ROM normal. RESPIRATORY: Lungs clear to auscultation. Good diaphragmatic excursion. CARDIAC: normal S1 and S2; no rubs, murmurs, or gallops; regular rate and rhythm ABDOMEN: Abdomen soft, non-tender. BS normal. No masses or organomegaly. MUSCULOSKELETAL: ROM full, muscles are not tender EXTREMITIES: no pitting edema in LE, no new deformities or skin discoloration. NEURO: Alert, oriented X 2, Cranial nerves II-XII intact, Grossly normal motor function. PULSES: 2+ radial, 2+ carotid REVIEW OF SYSTEMS: GENERAL: no malaise, no fevers., SEE HPI HEENT: Negative for frequent or significant headaches All other reviewed and negative other than HPI. IVs and Medications Medications Reviewed: Medications were reviewed in detail Lab and Diagnostics Result Diagram: 05/25/17 0445 05/25/17 044 Microbiology Urine culture pending. . X-Rays, CTs and MRIs X-RAY CHEST ONE VIEW, PORTABLE IMPRESSION: 1. Question mild CHF. 2. Possible small left effusion. 3. COPD. 4. Old rib fractures bilaterally. Dictated by: Aleah Ugalde M.D. on 05/23/2017 at 19:32 US VENOUS LEG DUPLEX BILATERAL IMPRESSION: No DVT in the lower extremities. Dictated by: Aleah Ugalde M.D. on 05/23/2017 at 22:04 . 12-lead ECG EKG: Atrial fibrillation/flutter, heart rate 77, normal axis, normal intervals , normal R-wave progression, no pathological Q waves or acute ischemic changes such as ST elevation or depression. . Cardiac Echo Impressions Previous Echocardiogram Interpretation Summary: There is mild concentric left ventricular hypertrophy. Left ventricular systolic function is normal without focal wall motion abnormalities. The ejection fraction is estimated to be 60-65%. Assessment of diastolic parameters indicates a relaxation abnormality of the left ventricle, consistent with normal filling pressures. The right ventricle is normal size. Right ventricular systolic function is mildly reduced. Right ventricular systolic pressure is normal. The left atrium is mildly dilated. Right atrial size is normal. There is moderate mitral annular calcification. There is mild prolapse of the anterior mitral valve leaflet. The mitral regurgitant jet is posteriorly directed, which is consistent with anterior leaflet pathology. There is mild mitral regurgitation. There is mild-moderate aortic regurgitation. There is no other significant valvular heart disease. The aortic root is normal size. Reading Physician:PM . Assessment & Plan Karin Jean Baptiste is an 82-year-old female with a past medical history significant for paroxysmal atrial fibrillation not on anticoagulation due to history of abdominal hematoma, prior bilateral pulmonary emboli, and hypertension who presents to [facility] emergency department with progressive shortness of breath 1 week. 1. Possible acute on chronic diastolic heart failure exacerbation, present on admission. Active. - Patient presented with progressive shortness of breath 1 week, dyspnea on exertion, increased lower extremity edema, orthopnea and fatigue. - The patient has a history of LV relaxation abnormality and diastolic CHF stage I, as above. - Ordered echocardiogram to asses for CHF. - EKG - personally reviewed - significant for atrial fibrillation without signs of ischemia; - troponin negative. - Chest x-ray - personally reviewed - significant for mild congestion - Venous Doppler ultrasound of bilateral lower extremities did not reveal any DVT - CTA was attempted, however, the patient's IV infiltrated therefore it was not completed. - BNP 2070. Plan -c/w current meds - hold Lasix and MEtoprolol for now as BP was on the lower side in the morning. 2. Urinary tract infection, present on admission. - Ux - Enterococus sensetive to Vanco and Penicillin . Ami is allergic to Penicillin - Fosfomycin 3. Paroxysmal atrial fibrillation, present on admission. Stable. - The patient has a history of abdominal hematoma and is no longer on warfarin. Plan - c/w current meds 4. Hypertension, present on admission. Stable. -stable - hpold BP meds 5. History of autoimmune hepatitis - stable - Continue prednisone and azathioprine therapy. 6. Rheumatoid arthritis, present on admission. - Stable. - Continue prednisone PRN antiemetics: Zofran and Maalox. PRN bowel regimen: Senna and MiraLAX. PRN analgesics: Tylenol. DVT PROPHYLAXIS: Heparin sq Code status:full code , per patient's wishes Disposition: discharge in 1-3 days after patient improves. Labs, radiology tests, and ECG reviewed. Plan of care, medication side effects, home medication, diagnostic procedures and available alternatives were discussed and reviewed with patient/family. All questions answered. Patient/family verbalized understanding, approved and agreed to plan of care. VTE Prophylaxis: Sub-Q Heparin (Unfractionated) VTE Mechanical Devices: Intermittant Pneumatic CD Resuscitation Status: CPR: Attempt Resuscitation Geovanny Sharp MD May 25, 2017 14:22
--- NOTE | 2017-05-25 15:56 | NUR ---
Family/SNF Family members at bs today when RN entered room and wanted to make it know "pt is not to be transferred to a SNF." RN to pass onto NOC shift and MD as well.
--- NOTE | 2017-05-25 19:27 | NUR ---
BP/Metoprolol Pt's BP decreased today while sitting and c/o of dizziness at times throughout shift; family at bs concerned pt having hospital delirium as they say she has periods of confusion. Family adamant about not placing pt in SNF. Evening dose of Metoprolol held and aware. No new orders, will advise NOC shift to hold BP medications until BP stabilizes. Will monitor with frequent rounds.
[2017-05-26 00:19] VITALS: BP 112/63; PULSE 90; RESP 18; O2SAT 96
[2017-05-26] MEDS: Sodium Chloride LOK Flush 10 mL Syringe IVFLUSH SCH ×2 (00:19→09:06)
[2017-05-26] MEDS: Heparin 5,000 Unit/mL Inj SUBQ SCH ×2 (00:19→09:07)
--- NOTE | 2017-05-26 04:00 | NUR ---
NOC shift Pt. has been alert and oriented during shift. Pt. steady during ambulating from chair to bed. Family in room. Will continue to monitor.
[2017-05-26 05:04] VITALS: BP 109/75; PULSE 109; RESP 16; O2SAT 95
[2017-05-26 05:15] VITALS: PULSE 93
[2017-05-26 08:23] VITALS: BP 124/70; PULSE 98; RESP 18; O2SAT 95
[2017-05-26] MEDS: Furosemide 10 mg/mL 2 mL Inj IVPUSH SCH (09:06)
[2017-05-26] MEDS: MeTOProlol XL 25 mg ER24 Tablet PO SCH (09:07)
[2017-05-26] MEDS: predniSONE 1 mg Tablet PO SCH (09:15)
[2017-05-26 10:27] VITALS: PULSE 103
[2017-05-26] MEDS ORDERED: FUR20 PO (10:44)
--- NOTE | 2017-05-26 10:48 | PCM.DICHF ---
CHF Discharge Instructions Date of Service: May 26, 2017 Dates of Hospitalization Date of Hospital Admission May 23, 2017 at 23:39 Date of Discharge: May 26, 2017 Providers Admitting Physician: Kay Wing MD Primary Care Physician: Preston Juarez MD Attending Physician: Geovanny Sharp MD Diagnosis at Time of Discharge Diagnosis at time of discharge Acute on chronic ?diastolic congestive heart failure with preserved ejection fraction. Urinary tract infection. Persistent atrial fibrillation. Hypertension. Generalized weakness Problems: Labs Ejection Fraction Laboratory Tests Test Range/Units 05/23/17 19:50 05/24/17 09:30 05/25/17 04:45 Hemoglobin A1c 4.8-5.6 % 5.7 Magnesium Level 1.6-2.6 mg/dL 2.0 Total Bilirubin 0.0-1.2 mg/dL 0.4 Aspartate Amino Transf (AST/SGOT) 0-50 U/L 27 Alanine Aminotransferase (ALT/SGPT) 0-32 U/L 16 Alkaline Phosphatase 25-165 U/L 55 Troponin T 0.0-0.011 ug/L < 0.010 Pro-B-Type Natriuretic Peptide 0-738 pg/mL 2071 Total Protein 6.4-8.4 g/dL 7.9 Albumin 3.4-5.0 g/dL 4.0 Thyroid Stimulating Hormone (TSH) 0.450-4.500 uIU/mL 4.650 Triglycerides Level 0-149 mg/dL 122 Cholesterol Level 100-199 mg/dL 251 LDL Cholesterol, Calculated 0-99 mg/dL 157.600 VLDL Cholesterol mg/dL 24.400 HDL Cholesterol >39 mg/dL 69 Cholesterol/HDL Ratio 0.0-4.4 3.64 Free Thyroxine 0.82-1.77 ng/dL 1.60 Sodium Level 134-144 mEq/L 142 Potassium Level 3.5-5.2 mEq/L 4.0 Chloride Level 97-108 mEq/L 98 Carbon Dioxide Level 18-29 mmol/L 28 Blood Urea Nitrogen 8-27 mg/dL 39 Creatinine 0.57-1.00 mg/dL 0.99 Estimat Glomerular Filtration Rate >59 mL/min 77 Glucose Level 60-99 mg/dL 87 Calcium Level 8.5-10.1 mg/dL 9.7 Discharge Medications Other Medication Instructions You have received instructions on the medications your physician has prescribed at discharge. A list of these medications has been provided to you. Keep this and a list of all current medications with you. Keep the dates when you received the Flu and Pneumococcal (Pneumonia) Vaccines. Last known date of receiving Flu Vaccine declines Last known date of receiving Pneumococcal (Pneumonia) Vaccine SUPERINTENDENT CIRCUS Diet CHF Discharge Diet: Low fat, Low Sodium Diet Instructions CHF Low Salt diet ( 2 grams or less sodium/day) Choose foods and drinks with low or no salt. Remove salt shaker from the table. Read Nutritional Facts labels. Activity CHF Discharge Activity: Balance rest and activity Weight Monitoring 1. Weigh yourself every day at the same time and write it down. 2. Take your weight log to your doctor visits. 3. Call your doctor if you gain 3-5 pounds over 2-3 days. 4. Your weight today is 140.21 lbs. Additional Instructions Smoking--Tobacco Use If you smoke, you are strongly encouraged to stop. If you have recently quit smoking, CONGRATULATIONS. For further information to stop smoking or to remain smoke-free, Follow Up Plan Follow Up: Days (follow-up with primary care provider in 2-3 days after discharge) Report or call your Doctor REPORT TO YOUR DOCTOR OR SEEK MEDICAL ATTENTION: *Shortness of breath or have more difficulty breathing. *Swelling of your feet, ankles, hands or abdomen. *Feeling tired with normal activity or experiencing dizziness or fainting. *Trouble sleeping or waking up feeling short of breath or coughing. *Chest pain or pressure. *Weight gain of 3-5 pounds over 2-3 days. *Inability to take medications or follow treatment plan Heart Attach warning signs HEART ATTACK WARNING SIGNS * Chest discomfort. *Discomfort or pain in one or both arms, back, neck, jaw or stomach. *Shortness of breath. *Breaking out in a cold sweat, nausea, or lightheadedness. If you're having heart attack warning signs: CALL . DON'T WAIT MORE THAN A FEW MINUTES - 5 MINUTES AT MOST - TO CALL . Geovanny Sharp MD May 26, 2017 10:48
--- NOTE | 2017-05-26 10:54 | NUR ---
Social Work: Readiness for Discharge/Multidisciplinary Rounds D: EMR reviewed. Pt is on day 3 of hospitalization. Pt discussed in multidisciplinary rounds and is medically stable for discharge home today. No SW needs identified, no MD orders received. Pt anticipated to discharge home with daughter to transport via POV. Pt agreeable. SW will continue to follow. A: Pt who is capable of self-care and who has KELLY caregivers P: Pt anticipated to discharge home today with daughter to transport via POV and continued KELLY caregiving. SW will continue to follow pt for possible discharge needs. No SW needs identified at this time, no MD orders received. SALIMA Irwin Addendum: 05/26/17 at 1152 by GILBERTO MEREDITH MD placed order for PT 3x/week. SW met with pt and family and provided choice list. Pt chose [facility]. SW will make referral to [facility] prior to pt's discharge. Addendum: 05/26/17 at 1234 by GILBERTO MEREDITH MORGAN made referral to [facility] MD completed F2F. MORGAN updated Jason Gomez to see pt at hospital prior to discharge and retrieve F2F. MORGAN updated pt and family all agreeable to discharge plan and time.
[2017-05-26 11:43] VITALS: BP_SYST 110; BP_SYST 114; BP_SYST 116; BP_DIAS 47; BP_DIAS 76; BP_DIAS 78
--- NOTE | 2017-05-26 12:34 | NUR ---
Social Work: Discharge D: EMR reviewed. Pt is on day 3 of hospitalization. Pt discussed in multidisciplinary rounds and is medically stable for discharge home today. No SW needs identified, SW received MD order for HH. SW met with pt and family and provided choice list. Pt chose [facility] . SW made referral to [facility] , provided access, MD completed F2F. SW updated Jason - Jason retrieved F2F and met with pt at hospital. [facility] to open with [facility] tomorrow 05/27. MORGAN updated pt and family and pt agreeable - all agreeable to plan. Pt to discharge home with daughter Melanie today via POV and open with [facility] 05/27. A: Pt who is capable of self-care and who has KELLY caregivers. Pt to open with [facility] on 05/27. P: Pt anticipated to discharge home today with daughter to transport via POV and continued KELLY caregiving. Pt to open with [facility] on 05/27. No SW needs identified at this time, no other MD orders received. SALIMA Irwin
--- NOTE | 2017-05-26 13:53 | NUR ---
Discharge Patient discharged home. IV DC'd and intact. Discharge instructions given to patient with daughter in the room. RX Lasix faxed to [facility] and original sent with patient. Patient to follow up with PCP in 2-3 days. Patient informed to call and schedule an appointment. Daughter gathered all belongings. ENTRY LEVEL AUTOMOTIVE TECHNICIAN escorted patient out via W/C.
--- NOTE | 2017-05-26 14:40 | PCM.DC.MED ---
Discharge Summary Date of Service May 26, 2017 Dates of Hospitalization Date of Hospital Admission May 23, 2017 at 23:39 Date of Discharge: May 26, 2017 Providers: Admitting Physician: Kay Wing MD Primary Care Physician: Preston Juarez MD Attending Physician: Geovanny Sharp MD Diagnosis at Time of Discharge Diagnosis at Time of Discharge Acute on chronic diastolic congestive heart failure with preserved ejection fraction. Urinary tract infection. Persistent atrial fibrillation. Hypertension. Generalized weakness Procedures XRay, CTs & MRIs X-RAY CHEST ONE VIEW, PORTABLE IMPRESSION: 1. Question mild CHF. 2. Possible small left effusion. 3. COPD. 4. Old rib fractures bilaterally. Dictated by: Aleah Ugalde M.D. on 05/23/2017 at 19:32 US VENOUS LEG DUPLEX BILATERAL IMPRESSION: No DVT in the lower extremities. Dictated by: Aleah Ugalde M.D. on 05/23/2017 at 22:04 . ECG 12 Lead EKG: Atrial fibrillation/flutter, heart rate 77, normal axis, normal intervals , normal R-wave progression, no pathological Q waves or acute ischemic changes such as ST elevation or depression. . Cardiac Echo Impression Previous Echocardiogram Interpretation Summary: There is mild concentric left ventricular hypertrophy. Left ventricular systolic function is normal without focal wall motion abnormalities. The ejection fraction is estimated to be 60-65%. Assessment of diastolic parameters indicates a relaxation abnormality of the left ventricle, consistent with normal filling pressures. The right ventricle is normal size. Right ventricular systolic function is mildly reduced. Right ventricular systolic pressure is normal. The left atrium is mildly dilated. Right atrial size is normal. There is moderate mitral annular calcification. There is mild prolapse of the anterior mitral valve leaflet. The mitral regurgitant jet is posteriorly directed, which is consistent with anterior leaflet pathology. There is mild mitral regurgitation. There is mild-moderate aortic regurgitation. There is no other significant valvular heart disease. The aortic root is normal size. Reading Physician:PM . Hospital Course Hospital Course: Karin Jean Baptiste is an 82-year-old female with a past medical history significant for paroxysmal atrial fibrillation not on anticoagulation due to history of abdominal hematoma, prior bilateral pulmonary emboli, and hypertension who presents to [facility] emergency department with progressive shortness of breath and lower extr edema Patient was diagnosed with Possible acute on chronic diastolic heart failure exacerbation, Urinary tract infection. Patient was treated with IV Lasix, Metoprolol. Ux - Enterococus sensetive to Vanco and Penicillin . Ami is allergic to Penicillin , she received Fosfomycin . After patient improved she was discharged home with [facility] with recommendation to follow up with her PCP, Clay Temperer for further management of her medical problems. Patient Condition @ Discharge: good Discharge Disposition: home with [facility] Discharge Activity: resume regular activity, patient was advised to avoid heavy physical work or exertion Discharge Diet: regular diet, heart healthy, low fat, low salt, high fiber Information Provided to Patient: information about discharge medications Discharge Medications: I discussed with patient/family medication dosage, usage , goals of therapy, side effects, alternatives. During discharge patient was allert, oriented, fully competent, able to make own informed decisions. We discussed possible severe side effects, adverse reactions, benefits, risks, alternatives of current and newly prescribed medications and diagnostic procedures. Patient verbalized understanding and agreed to current plan of care and discharge. TIME SPENT IN DISCHARGE ACTIVITY: Face to face activity greater then 30 minutes spent in discharge activity. 1. Discussed with patient/ family re: discharge plan of care/treatment, and follow up care/services. 2. Patient/family agreed with discharge plan and further plan of care, all questions were answered/addressed, no further questions at the time of discharge. Exam Vital Signs (Last) Date Time Temp Pulse Resp B/P Pulse Ox O2 Delivery O2 Flow Rate FiO2 05/26/17 11:43 116/47 110/76 114/78 05/26/17 10:27 103 05/26/17 08:23 36.4 18 95 Room Air Test 05/23/17 19:50 05/23/17 22:05 05/24/17 09:30 05/25/17 04:45 Neutrophils (%) (Auto) 78.9% (40-74) Lymphocytes (%) (Auto) 10.0% (14-46) Monocytes (%) (Auto) 8.7% (4-12) Eosinophils (%) (Auto) 2.0% (0-5) Basophils (%) (Auto) 0.2% (0-3) Hemoglobin A1c 5.7% (4.8-5.6) Magnesium Level 2.0mg/dL (1.6-2.6) Total Bilirubin 0.4mg/dL (0.0-1.2) Aspartate Amino Transf (AST/SGOT) 27U/L (0-50) Alanine Aminotransferase (ALT/SGPT) 16U/L (0-32) Alkaline Phosphatase 55U/L (25-165) Troponin T < 0.010ug/L (0.0-0.011) Pro-B-Type Natriuretic Peptide 2071pg/mL (0-738) Total Protein 7.9g/dL (6.4-8.4) Albumin 4.0g/dL (3.4-5.0) Thyroid Stimulating Hormone (TSH) 4.650uIU/mL (0.450-4.500) Urine Color Yellow (YELLOW) Urine Appearance Hazy (CLEAR,HAZY) Urine pH 6.0 (5.0-8.0) Urine Specific [place] 1.010 (1.003-1.035) Urine Protein Tracemg/dL (NEG,TRACE) Urine Glucose (UA) Negativemg/dL (NEGATIVE) Urine Ketones Negativemg/dL (NEGATIVE) Urine Occult Blood Moderate (NEGATIVE) Urine Nitrite Negative (NEGATIVE) Urine Bilirubin Negative (NEGATIVE) Urine Urobilinogen Normalmg/dL (NORMAL) Urine Leukocyte Esterase Trace (NEGATIVE) Urine RBC 11-50/hpf (0-2) Urine WBC 11-50/hpf (0-5) Urine Epithelial Cells Moderate/hpf (NONE-MOD) Urine Crystals None seen (NONE SEEN) Urine Bacteria Few/hpf (NONE-FEW) Urine Hyaline Casts Occasional/lpf (NONE) Urine Granular Casts None seen (NONE SEEN) Urine Waxy Casts None seen (NONE SEEN) Urine Red Blood Cell Casts None seen (NONE SEEN) Urine White Blood Cell Casts None seen (NONE SEEN) Urine Mucus None seen (None Seen) Urine Trichomonas None seen (NONE SEEN) Urine Yeast None (NONE SEEN) Urinalysis Comment None Urine Culture Reflexed Indicated Triglycerides Level 122mg/dL (0-149) Cholesterol Level 251mg/dL (100-199) LDL Cholesterol, Calculated 157.600mg/dL (0-99) VLDL Cholesterol 24.400mg/dL HDL Cholesterol 69mg/dL (>39) Cholesterol/HDL Ratio 3.64 (0.0-4.4) Free Thyroxine 1.60ng/dL (0.82-1.77) White Blood Count 7.3th/mm3 (3.8-10.1) Red Blood Count 4.29mil/mm3 (3.90-5.20) Hemoglobin 14.8g/dL (12.0-15.6) Hematocrit 43.4% (35.0-46.0) Mean Corpuscular Volume 101.2fL (81-100) Mean Corpuscular Hemoglobin 34.5pg (27.0-35.0) Mean Corpuscular Hemoglobin Concent 34.1% (32.0-37.0) Red Cell Distribution Width 14.4% (12.3-15.4) Platelet Count 216bil/L (150-400) Sodium Level 142mEq/L (134-144) Potassium Level 4.0mEq/L (3.5-5.2) Chloride Level 98mEq/L (97-108) Carbon Dioxide Level 28mmol/L (18-29) Blood Urea Nitrogen 39mg/dL (8-27) Creatinine 0.99mg/dL (0.57-1.00) Estimat Glomerular Filtration Rate 77mL/min (>59) Glucose Level 87mg/dL (60-99) Calcium Level 9.7mg/dL (8.5-10.1) Microbiology Results Urine culture pending. . Discharge Medications Discharge Medications Aspirin (Aspirin) 81 Mg Tablet 81 MG PO DAILY (Reported) Azathioprine (Azathioprine) 50 Mg Tablet 50 MG PO DAILY (Reported) Furosemide (Furosemide) 20 Mg Tab 20 MG PO DAILY Prescribed by: PEDRITO ELDER MD Metoprolol Succinate ER (Metoprolol Succinate ER) 25 Mg Tab.er.24h 25 MG PO DAILY Prescribed by: GILBERTO BUTCHER DO PredniSONE (PredniSONE) 1 Mg Tab 3 MG PO DAILY (Reported) As needed Acetaminophen (Acetaminophen) 325 Mg Tablet 650 MG PO Q4H PRN PRN For Pain ( Reported) Geovanny Sharp MD May 26, 2017 14:40
== END 2017-05-26 13:51 | disposition home or self-care (01) | DRG 292 ==
LOC: SED 18:16 → OSC 23:39
PROVIDERS: ADMIT Specialist; ATTEND Internal Medicine
DX: I50.33 Acute on chronic diastolic (congestive) heart failure (principal); N39.0 Urinary tract infection, site not specified; Z79.82 Long term (current) use of aspirin; Z79.52 Long term (current) use of systemic steroids; Z86.711 Personal history of pulmonary embolism; I48.0 Paroxysmal atrial fibrillation; I10 Essential (primary) hypertension; K75.4 Autoimmune hepatitis; M06.9 Rheumatoid arthritis, unspecified

== ENCOUNTER 2017-06-23 12:16 | Inpatient (IN) | payer MEDICARE, MEDICAID ==
[~2017-06-23] VITALS: Ht 160 cm; Wt 62.4 kg
[~2017-06-23 12:16] MED LIST changes: +FUR20 PO; -LACT1CAP44 PO; +METO-386 PO; -METO25TA99 PO; -ONDA8TAB10 PO; -TRAM50TA2 PO; -VERA240T97 PO
[2017-06-23 12:35] VITALS: BP 99/66; PULSE 101; RESP 17; O2SAT 100
--- NOTE | 2017-06-23 12:38 | ED.REPORT ---
HPI-Dyspnea / Wheezing Date of Service Jun 23, 2017 ED Provider: Benji Coto MD Pt is a 82 year old female with a history of afib, CHF, previous PE, hypothyroidism and hypertension on Warfarin who presents to the ED c/o intermittent chest tightness onset three days ago. She describes her pain as like "something is sitting on her chest", and it improves as the day goes on. Additional symptoms include SOB, fatigue, and lower leg edema onset a few weeks since starting Lasix. She denies fever, chills, diaphoresis, cough, or urinary retention. She reports that she is able to sleep at night with no trouble, and denies having similar symptoms previously. She takes 20 mg of Lasix daily. Although she hasn't been taking her weight daily, her daughter reports a 2-3 lb increase in weight since taking Lasix. She was recently hospitalized on 05/23/17 for CHF exacerbation and SOB. Nursing Notes Stated Complaint: SOB Chief Complaint: Chest Pain Nursing Notes Reviewed: Yes ([employer], [employer] not reconciled) Allergies: Coded Allergies: penicillin G (Verified Allergy, Severe, 06/23/17) Sulfa (Sulfonamide Antibiotics) (Unverified Allergy, Intermediate, Rash, Itching,, 06/23/17) azithromycin (Unverified Allergy, Intermediate, Rash, 06/23/17) atenolol (Unverified Allergy, Unknown, 06/23/17) doxepin (Unverified Allergy, Unknown, 06/23/17) hydrochlorothiazide (Unverified Allergy, Unknown, 06/23/17) isosorbide (Unverified Allergy, Unknown, 06/23/17) losartan (Unverified Allergy, Unknown, 06/23/17) triamterene (Unverified Allergy, Unknown, 06/23/17) KAIDEN Inhibitors (Unverified Adverse Reaction, Unknown, 06/23/17) labetalol (Unverified Adverse Reaction, Unknown, 06/23/17) nitrofurantoin (Unverified Adverse Reaction, Unknown, Rash, 06/23/17) Uncoded Allergies: ANTIBIOTICS (Allergy, Unknown, UNCLEAR, 05/22/14) Scheduled Azathioprine (Azathioprine) 50 Mg Tablet 50 MG PO DAILY Furosemide (Furosemide) 20 Mg Tab 20 MG PO DAILY Metoprolol Succinate ER (Metoprolol Succinate ER) 50 Mg Tab.er.24h 50 MG PO DAILY PredniSONE (PredniSONE) 1 Mg Tab 3 MG PO DAILY Warfarin Sodium (Warfarin Sodium) 2.5 Mg Tablet 5 MG PO HS Scheduled PRN Acetaminophen (Acetaminophen) 325 Mg Tablet 650 MG PO Q4H PRN PRN For Pain General Time Seen by MD: 12:33 Chief Complaint Chest pain Hx Obtained From: Patient, Daughter Arrived By: Walk-in Sudden in Onset?: No Onset Occurred: 3 days ago Symptom Duration: Intermittent Quality: Painful, Pressure Severity: Current: Mild Severity: Maximum: Moderate Context Related History: Reports: Congestive heart failure, Pulmonary embolism Recent Healthcare: Recent doctor visit, Recent hospitalization Similar Sx Previous: No Past Medical History Past Medical History Notes: PCP: Dr. Mcduffie Medical Technologist Blood Bank: [facility] Patient with admission for acute on chronic diastolic CHF with preserved ejection fraction May 23-2016 Note regarding anticoagulation as of June 2017: Patient turns out according to daughter to be back on warfarin preprocedure for a "watchman procedure" by cardiology down at [facility] in the next week or 2 this is a temporary anticoagulation for 1 month preprocedure, and expected one-month post procedure. Prior echocardiogram EF 60-65%, LVH October 2014 Past Medical History h/o Bilateral pulmonary embolism, diagnosed October 2014, treated with warfarin previously (warfarin D/C'd secondary to prior abdominal hemorrhage) h/o atrial fibrillation Hypertension Hypothyroidism. Hyperlipidemia. Rheumatoid arthritis h/o Autoimmune hepatitis, on chronic prednisone and azathioprine therapy Reports: Thyroid disease Past Surgical History bilateral knee surgeries Reports: Cataract surgery Reports: Carpal tunnel Family History CHF Pt's mother, daughter, and son have CAD Reports: Coronary artery disease, Stroke Smoking History Never Smoker Social History Drug Use: Denies drug use Other Social History: Good social support, Local resident Ambulatory Status Independent Review of Systems No urinary retention Constitutional: Reports: Fatigue, Denies: Chills, Fever Respiratory: Reports: Shortness of breath, Denies: Non-productive cough, Prod cough, clear Cardiovascular: Reports: Chest pain Musculoskeletal: Reports: Extremity swelling (lower leg edema onset few weeks since starting Lasix) Skin: Denies Diaphoresis Complete sys rev & neg: except as marked. Physical Exam Initial Vital Signs Vital Signs (First) Date Time Temp Pulse Resp B/P Pulse Ox O2 Delivery O2 Flow Rate FiO2 06/23/17 12:35 36.6 101 17 99/66 100 Room Air Initial VS: Reviewed, Unavailable (not reconciled) Head / Eyes: Atraumatic, Normocephalic Abdomen / GI: Soft, Non-tender Lymphatic: No lymphadenopathy Extremities: Vascular intact, Neuro intact Skin: Warm, Dry, No cyanosis General/Constitutional: Awake, Alert Memory issues Pleasant Neck: Supple, Full range of motion Respiratory / Chest: Atraumatic Tachypnic Rales at borderline, worse on L side than R No cough Cardiovascular: Heart rate NL, Regular rhythm, Heart sounds NL, No murmurs Lower Ext Edema: Positive: Bilateral 1+ Interpretation & Diagnostics Lab Results Interpretation Result Diagram: 06/23/17 1316 06/23/17 1316 Test 06/23/17 13:16 White Blood Count 9.2th/mm3 (3.8-10.1) Red Blood Count 4.05mil/mm3 (3.90-5.20) Hemoglobin 14.0g/dL (12.0-15.6) Hematocrit 40.7% (35.0-46.0) Mean Corpuscular Volume 100.5fL (81-100) Mean Corpuscular Hemoglobin 34.6pg (27.0-35.0) Mean Corpuscular Hemoglobin Concent 34.4% (32.0-37.0) Red Cell Distribution Width 14.5% (12.3-15.4) Platelet Count 233bil/L (150-400) Neutrophils (%) (Auto) 77.8% (40-74) Lymphocytes (%) (Auto) 9.1% (14-46) Monocytes (%) (Auto) 11.6% (4-12) Eosinophils (%) (Auto) 1.0% (0-5) Basophils (%) (Auto) 0.3% (0-3) Prothrombin Time 13.6sec (8.1-12.5) Prothromb Time International Ratio 1.26ratio D-Dimer 0.58mg/L FEU (<0.50) Sodium Level 137mEq/L (134-144) Potassium Level 4.1mEq/L (3.5-5.2) Chloride Level 93mEq/L (97-108) Carbon Dioxide Level 24mmol/L (18-29) Blood Urea Nitrogen 30mg/dL (8-27) Creatinine 1.24mg/dL (0.57-1.00) Estimat Glomerular Filtration Rate 59mL/min (>59) Glucose Level 110mg/dL (60-99) Calcium Level 9.3mg/dL (8.5-10.1) Magnesium Level 1.8mg/dL (1.6-2.6) Total Bilirubin 0.4mg/dL (0.0-1.2) Aspartate Amino Transf (AST/SGOT) 25U/L (0-50) Alanine Aminotransferase (ALT/SGPT) 11U/L (0-32) Alkaline Phosphatase 53U/L (25-165) Troponin T 0.010ug/L (0.0-0.011) Pro-B-Type Natriuretic Peptide 2437pg/mL (0-738) Total Protein 8.0g/dL (6.4-8.4) Albumin 3.8g/dL (3.4-5.0) Lab Results Interpretation: CBC is normal CP trace renal insufficiency Troponin negative Age-adjusted d-dimer negative BNP elevated ECG Interpretation ECG Interpretation: Atrial fibrillation, rate 101 LVH with strain Unchanged from previous EKG on 05/23/17 Time: 12:43 Interpreted by: ED physician X-Ray Chest Interpretation Chest Xray Interpretation: IMPRESSION: 1. No acute cardiopulmonary abnormality. Dictated by: Celestino Linares M.D. on 06/23/2017 at 13:18 Approved by: Celestino Linares M.D. on 06/23/2017 at 13:19 View: Portable, 1 view Interpretation / Wet Read by: Interpret - Radiologist Re-Eval/Medical Decision Med Decision/Clinical Course This is a pleasant 82-year-old female with history of CHF who had an admission a little over a month ago who presents complaining of increasing dyspnea, paroxysmal nocturnal dyspnea, weight gain, and leg edema. She has been on 20 mg of Lasix and missed one dose recently, but has had worsening symptoms of pain in. She reports a sense of trace chest pressure with this, no fevers, no cough. She has A. fib, and a distant history of PE but is not anticoagulated due to a history of some sort of hemorrhaging GI possibly intra-abdominal hematoma in the past. On exam she is short of breath, and the biggest concern is her blood pressures a little on the low end to have room for medical management. He is in rate controlled atrial fibrillation. She has findings consistent clinically with CHF. Chest x-rays underwhelming without aggressive radiographic CHF, labs noted for elevated BNP, a normal troponin, and a negative age-adjusted d-dimer. The patient did receive 20 mg of Lasix, but additional medications were not given simultaneously given the patient's low normal blood pressure. Because of this low blood pressure, but prudence management courses admission for careful monitoring and response to therapy and continue diuresis. This is been discussed with the hospitalist. Source of Hx: Old records Re-Evaluation/Progress #1: Time of Eval: 14:00 Re-Evaluation/Progress Note: Lab analyzer down, labs aren't reading Re-Evaluation/Progress #2: Time of Eval: 15:33 Re-Evaluation/Progress Note: Pt rechecked. Per daughter, pt is on Warfarin temporarily for Watchman procedure that will be done at [facility] in the next week or two. Pt adamantly refuses aspirin. Discussed plan for admission. Pt understands and agrees with plan. All questions addressed. Consultation : Referral / Consult Name: Lesly Lopez DO Consulted With: Hospitalist Call Returned at: 15:00 Type Proof Reproducer: Will see patient, Agrees with plan, Accepts admit Note: Discussed pt's case with hospitalist, Dr. Lopez. Differential Diagnosis: Positive: Congestive heart failure Counseled Regarding: Diagnosis, Lab results, Need for admission Discharge & Departure Impression: Primary Impression: CHF exacerbation Additional Impressions: Chronic atrial fibrillation Subtherapeutic international normalized ratio (INR) Discharge Condition All VS Reviewed: Yes Condition: Stable Referrals: Preston Juarez MD (PCP) Ebonyibkelly Attestation Portions of this note were transcribed by Bethany Serrano. I, Dr. Coto, personally performed the history, physical exam and medical decision-making; I reviewed and confirmed the accuracy of the information in the transcribed note. Signed by: Frannie Whitehead, 06/23/17. copies to: Preston Juarez MD, Matthew F MD Jun 23, 2017 12:38 Bethany Serrano Jun 23, 2017 12:48
[2017-06-23] MEDS ORDERED: Furosemide 10 mg/mL 2 mL Inj IVPUSH ONE (12:50)
--- NOTE | 2017-06-23 13:21 | DRSVH ---
PROCEDURE: X-RAY CHEST ONE VIEW, PORTABLE ([id number]) INDICATIONS: chest pain TECHNIQUE: One view of the chest was acquired. COMPARISON: 05/23/2017 FINDINGS: Surgical changes and devices: None. Lungs and pleura: No pleural effusions or pneumothorax. Lungs are clear. Mediastinum: Mediastinal contours appear normal. Heart size is normal. Aortic calcification and mil d tortuosity Bones and chest wall: Old fracture deformity and degenerative changes right humeral head. Arthritic changes left shoulder. Multiple old bilateral rib fracture deformities. No suspicious bony lesions. Overlying soft tissues appear unremarkable. IMPRESSION: 1. No acute cardiopulmonary abnormality. Dictated by: Celestino Linares M.D. on 06/23/2017 at 13:18 Approved by: Celestino Linares M.D. on 06/23/2017 at 13:19
[2017-06-23 13:23] LABS: BASOPHILS % (AUTO) 0.3 % (0-3); MONOCYTES % (AUTO) 11.6 % (4-12); Mean Corpuscular Hemoglobin 34.6 pg (27.0-35.0); Mean Corpuscular Volume 100.5 fL (81-100); NEUTROPHILS % (AUTO) 77.8 % (40-74); Platelet Count 233 bil/L (150-400)
[2017-06-23 13:35] LABS: INR 1.26 ratio
[2017-06-23 13:50] LABS: TROPONIN T 0.01 ug/L (0.0-0.011)
[2017-06-23 14:26] LABS: Magnesium 1.8 mg/dL (1.6-2.6)
[2017-06-23] MEDS ORDERED: METO-369 PO (15:01)
[2017-06-23] MEDS ORDERED: WARF2.5T82 PO (15:01)
[2017-06-23] MEDS ORDERED: PRD1T PO (15:01)
[2017-06-23] MEDS ORDERED: Ondansetron 2 mg/mL 2 mL Inj IVPUSH PRN ×2 (15:40→17:05)
[2017-06-23] MEDS ORDERED: Alum-Mag Hydrox-Simeth 30 mL Suspension PO PRN ×2 (15:40→17:05)
[2017-06-23 15:52] VITALS: BP 121/83; PULSE 90; RESP 20; O2SAT 96
--- NOTE | 2017-06-23 16:15 | NUR ---
ADMIT to [facility] Report received from Ainsa/RN in ED. Pt brought up to floor via gurney around 1615. Pt dizzy and very weak and unsteady, reported to use FWW at home/baseline. Monitoring pt as 1PA for OOB activity with FWW. Pt also has very sore/weak R arm/shoulder d/t past injury. Pt denies pain and SOB at rest. Tele placed: Afib/flutter 70-80s. On RA, but reports to use 2L O2 at night per PCP instructions - r/t PE hx. Pt oriented to unit, room and call light. Pt A/Ox4 and cooperative with plan of care. Admit and Med Rec completed by admit nurse.
[2017-06-23 16:31] VITALS: PULSE 92
[2017-06-23 16:34] VITALS: BP 127/87; PULSE 87; RESP 16; O2SAT 95
[2017-06-23] MEDS ORDERED: Polyethylene Glycol (PEG) 17 Gm Powder PO PRN (17:05)
[2017-06-23] MEDS ORDERED: Senna-Docusate 8.6-50 mg Tablet PO PRN (17:05)
--- NOTE | 2017-06-23 18:04 | PCM.HPMED ---
Subjective Date of Service Jun 23, 2017 Primary Provider: Admitting Physician: Lesly Lopez DO Primary Care Physician: Preston Juarez MD Attending Physician: Lesly Lopez DO Chief Complaint: Chest Pain and SOB History of Present Illness: Karin Jean Baptiste is an 82-year-old female with a past medical history significant for paroxysmal atrial fibrillation not on anticoagulation due to history of abdominal hematoma, prior bilateral pulmonary emboli, hypertension, autoimmune hepatitis of the liver, hypothyroidism who presents to the ED with complaints of chest tightness and shortness of breath that started about 3 days ago and has been progressively getting worse. She states that she feels as if "an elephant is sitting on her chest". The pain did not radiate elsewhere in her body. In addition, she notes that today, she was diaphoretic, unable to speak full sentences because of shortness of breath, dizzy, and felt like she was going to "pass out." She also notes that the swelling on her legs bilaterally have been worse, especially in the morning. She has associated dyspnea on exertion, orthopnea, and fatigue. She denies vision changes, sore throat, congestion, chest pain, palpitations, paroxysmal nocturnal dyspnea, abdominal pain, nausea, vomiting, diarrhea or constipation. She was recently hospitalized on 05/23/17 for CHF exacerbation and SOB and was sent home with 20 mg po Lasix. Patient hasn't been weighing herself lately but daughter notes that she has probably gained about 2-3 lbs since she was last discharged. Daughter notes that although the patient is not a candidate for warfarin due to her history of abdominal hematoma, she will be undergoing a procedure for a watchman device at [facility] for CVA prophylaxis from left atrial appendage blood clots. As a result, she was placed on warfarin temporarily 30 days prior to surgery and then again 45 days after that procedure. Her INR and warfarin dosage is being followed closely by her Livestock Judging Coach at [facility]. In addition, she has a history of recurrent urinary tract infection. She was just recently started on antibiotics by her PCP, Dr. Juarez. Based on clinic chart notes, her urine culture on 06/16/17 was positive for Klebsiella pneumonia sensitive to Levofloxacin. She is now on day 3 out of 5 of Levofloxacin. Vital signs in the ED: Temperature 36.6. Pulse 101. Respiratory rate 17. Blood pressure 99/66. Pulse ox 100% on room air. CBC unremarkable. BUN/ Cr elevated at 30/1.24. Troponin negative X1. EKG showed A fib with rate of 101, unchanged from previous EKG on 05/23/17. Age-adjusted D-dimer negative. BNP elevated at 2437. Patient received 20 mg IV lasix in the ED. PCP is Dr. Juarez. Livestock Judging Coach is Dr. Wright at [facility]. . Review of Systems: The comprehensive review of systems was conducted with the patient and found to be negative except as above in the history of present illness. Allergies Coded Allergies: penicillin G (Verified Allergy, Severe, 06/23/17) Sulfa (Sulfonamide Antibiotics) (Unverified Allergy, Intermediate, Rash, Itching,, 06/23/17) azithromycin (Unverified Allergy, Intermediate, Rash, 06/23/17) atenolol (Unverified Allergy, Unknown, 06/23/17) doxepin (Unverified Allergy, Unknown, 06/23/17) hydrochlorothiazide (Unverified Allergy, Unknown, 06/23/17) isosorbide (Unverified Allergy, Unknown, 06/23/17) losartan (Unverified Allergy, Unknown, 06/23/17) triamterene (Unverified Allergy, Unknown, 06/23/17) KAIDEN Inhibitors (Unverified Adverse Reaction, Unknown, 06/23/17) labetalol (Unverified Adverse Reaction, Unknown, 06/23/17) nitrofurantoin (Unverified Adverse Reaction, Unknown, Rash, 06/23/17) Uncoded Allergies: ANTIBIOTICS (Allergy, Unknown, UNCLEAR, 05/22/14) Home Medications Azathioprine (Azathioprine) 50 Mg Tablet 50 MG PO DAILY Furosemide (Furosemide) 20 Mg Tab 20 MG PO DAILY Metoprolol Succinate ER (Metoprolol Succinate ER) 50 Mg Tab.er.24h 50 MG PO DAILY PredniSONE (PredniSONE) 1 Mg Tab 3 MG PO DAILY Warfarin Sodium (Warfarin Sodium) 2.5 Mg Tablet 5 MG PO HS Acetaminophen (Acetaminophen) 325 Mg Tablet 650 MG PO Q4H PRN PRN For Pain Levofloxacin 500 mg po daily for 5 days PMH h/o Bilateral pulmonary embolism, diagnosed October 2014, treated with warfarin previously (warfarin D/C'd secondary to prior abdominal hemorrhage) h/o atrial fibrillation Hypertension Hypothyroidism. Hyperlipidemia. Rheumatoid arthritis h/o Autoimmune hepatitis, on chronic prednisone and azathioprine therapy Surgical History bilateral knee surgeries Cataract surgery Carpal tunnel Family History CHF Pt's mother, daughter, and son have CAD Reportts family hx of Coronary artery disease, Stroke Social History Hx Alcohol Use: No Hx Substance Use: No Hx Tobacco Use: No Smoking Status: Never Smoker Living Arrangement: Assisted Living Exam Vital Signs Vital Sign - Last Date Time Temp Pulse Resp B/P Pulse Ox O2 Delivery O2 Flow Rate FiO2 06/23/17 16:34 36.5 87 16 127/87 95 Room Air Exam General: Patient is lying comfortably in bed, eating dinner, AAOX3, not in acute distress, cooperative and pleasant. HEENT: head normocephalic and atraumatic, PERRLA, EOMI, no scleral icterus, noninjected conjunctiva Neck: neck supple, non-tender, no lymphadenopathy, trachea midline, no JVD CV: irregular rhythm, s1 and s2 heard, 3/6 systolic murmur heard best at lower left sternal border, radial pulses 2+ and equal bilaterally, no rubs or gallops , trace pitting edema in LE bilaterally, evidence of JVD Lungs: mild crackles in the lung bases bilaterally, no increased work of breathing, no use of accessory muscles Abdomen: normoactive bowel sounds on 4Q, soft, non-distended, non-tender to palpation, no organomegally, Skin: warm and dry Musculoskeletal: history of injury to right shoulder so patient is unable to raise shoulder, 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, muscle weakness to LE bilaterally Neuro: Grossly neurologically intact, cranial nerves II through XII intact, no dyskinesia, dysmetria, or dysdiadochokinesia noted Psych: Normal mood and affect Lab and Diagnostics Labs Laboratory Tests Test 06/23/17 13:16 06/23/17 17:50 White Blood Count 9.2th/mm3 (3.8-10.1) Red Blood Count 4.05mil/mm3 (3.90-5.20) Hemoglobin 14.0g/dL (12.0-15.6) Hematocrit 40.7% (35.0-46.0) Mean Corpuscular Volume 100.5fL (81-100) Mean Corpuscular Hemoglobin 34.6pg (27.0-35.0) Mean Corpuscular Hemoglobin Concent 34.4% (32.0-37.0) Red Cell Distribution Width 14.5% (12.3-15.4) Platelet Count 233bil/L (150-400) Neutrophils (%) (Auto) 77.8% (40-74) Lymphocytes (%) (Auto) 9.1% (14-46) Monocytes (%) (Auto) 11.6% (4-12) Eosinophils (%) (Auto) 1.0% (0-5) Basophils (%) (Auto) 0.3% (0-3) Prothrombin Time 13.6sec (8.1-12.5) Prothromb Time International Ratio 1.26ratio D-Dimer 0.58mg/L FEU (<0.50) Sodium Level 137mEq/L (134-144) Potassium Level 4.1mEq/L (3.5-5.2) Chloride Level 93mEq/L (97-108) Carbon Dioxide Level 24mmol/L (18-29) Blood Urea Nitrogen 30mg/dL (8-27) Creatinine 1.24mg/dL (0.57-1.00) Estimat Glomerular Filtration Rate 59mL/min (>59) Glucose Level 110mg/dL (60-99) Calcium Level 9.3mg/dL (8.5-10.1) Magnesium Level 1.8mg/dL (1.6-2.6) Total Bilirubin 0.4mg/dL (0.0-1.2) Aspartate Amino Transf (AST/SGOT) 25U/L (0-50) Alanine Aminotransferase (ALT/SGPT) 11U/L (0-32) Alkaline Phosphatase 53U/L (25-165) Troponin T 0.010ug/L (0.0-0.011) Pro-B-Type Natriuretic Peptide 2437pg/mL (0-738) Total Protein 8.0g/dL (6.4-8.4) Albumin 3.8g/dL (3.4-5.0) Result Diagram: 06/23/17 1316 06/23/17 1316 X-Rays, CTs and MRIs PROCEDURE: X-RAY CHEST ONE VIEW, PORTABLE ([id number]) IMPRESSION: 1. No acute cardiopulmonary abnormality. Dictated by: Celestino Linares M.D. on 06/23/2017 at 13:18 12-lead ECG ECG Interpretation: Atrial fibrillation, rate 101 LVH with strain Unchanged from previous EKG on 05/23/17 Time: 12:43 Interpreted by: ED physician Cardiac Echo Impressions Echocardiogram on 05/24/2017 Interpretation Summary The ejection fraction is estimated to be 55-60%. The left atrium is severely dilated. There is moderate mitral annular calcification. There is mild mitral valve prolapse. There is severe mitral regurgitation. Flow reversal noted in pulmonary veins consistent with significant mitral regurgitation. The aortic valve is mildly calcified. There is no hemodynamically significant valvular aortic stenosis. There is mild aortic regurgitation. There is mild to moderate tricuspid regurgitation. Mild pulmonary artery dilation. Compared to prior echo report on 2014, changes are noted. Assessment & Plan Karin Jean Baptiste is an 82-year-old female with a past medical history significant for paroxysmal atrial fibrillation not on anticoagulation due to history of abdominal hematoma, prior bilateral pulmonary emboli, hypertension, autoimmune hepatitis of the liver, hypothyroidism who presents to the ED with complaints of chest tightness and shortness of breath that started about 3 days ago and has been progressively getting worse. Acute on chronic diastolic congestive heart failure with preserved ejection fraction - Patient presented with worsening chest pain, SOB, increased weight and LE edema - The patient has a history of LV relaxation abnormality and diastolic CHF based on ECHO on 05/2017. Ejection fraction is estimated to be 55-60%. - Ordered limited echocardiogram to reasses in the am - EKG demonstrated atrial fibrillation without signs of ischemia and troponin negative. Will continue to trend troponin X2 - BNP 2437. -Patient received 20 mg IV lasix in the ED - Increase diuresis from Lasix PO 20 mg to Lasix IV 20 mg daily while inpatient - Continue metoprolol succinate 50 mg daily. - Ordered heart healthy diet. - Ordered daily standing weights, strict I&O's, and 2 L fluid restriction. Recent acute urinary tract infection, present on admission. - Patient was recently diagnosed with urinary tract infection in the outpatient setting. -Urine Culture shows Klebsiella pneumonia, sensitive to Levofloxacin - Patient was Started on Levofloxacin 500 mg daily as an outpatient. She is currently on day 3 out of 5. We will continue this for 2 more days. -Ordered urinalysis Acute kidney injury, present on admission -Likely secondary from UTI -BUN/ CR-30/1.24 -Continue to monitor Chronic problems: Paroxysmal atrial fibrillation, present on admission. Stable. - The patient has a history of abdominal hematoma and has been told to stop warfarin. However, she will be undergoing a procedure for a watchman device at [facility] for CVA prophylaxis from left atrial appendage blood clots. As a result, she was placed on warfarin temporarily 30 days prior to surgery -INR is being followed closely by Cardiology at [facility]. We Will continue with the same dose of warfarin 5mg daily - Continue to follow INR - Continue metoprolol succinate 50 mg daily. Currently rate controlled. Hypertension, present on admission. Stable. - Continue metoprolol succinate 50 mg twice daily and verapamil 120 mg daily ( not clear if patient is on this medication and needs to be re-verified)!! History of autoimmune hepatitis - Continue prednisone and azathioprine therapy. History of Hypothyroidism, presumed stable -Patient notes that she does not take levothyroxine -Ordered TSH and reasses Patient Status: Patient is admitted under inpatient status expected length of stay greater than 2 midnights due to severity of presenting symptoms, risk of adverse events, and complexity of treatment plan. Code Status: Full Code Pain Evaluation: Adequate Pain Control GI Prophylaxis: H2 chikis VTE Prophylaxis: Sub-Q Heparin (Unfractionated) Resuscitation Status: CPR: Attempt Resuscitation Time spent Greater than 45 min Attending Statement The patient was seen and examined together with Dr. Camara on 06/23/17 and I have added additional information to the note above. Lauren Camara DO Jun 23, 2017 18:04 Lesly Lopez DO Jun 24, 2017 00:33
[2017-06-23 18:27] LABS: INR 1.28 ratio
[2017-06-23 19:02] LABS: Magnesium 1.8 mg/dL (1.6-2.6)
--- NOTE | 2017-06-23 19:48 | PCM.PHAPRO ---
Progress Chest Pain and SOB Warfarin Management Indication: pre-procedure 30 day therapy prior to Watchman Device Home dose: 5mg daily without INR goal A/P: pharmacy to monitor for high INR and hold warfarin if necessary but will not adjust dose for subtherapeutic INR per request by Dr. Camara who is following Cardiology orders Pt. is not a candidate for therapeutic INR due to history of abdominal hematoma while on warfarin. Emma Hall Pharm.D Jun 23, 2017 19:48
[2017-06-23 20:31] VITALS: BP 108/73; PULSE 93; RESP 16; O2SAT 98
[2017-06-23] MEDS: Heparin 5,000 Unit/mL Inj SUBQ SCH (21:08)
[2017-06-24] VITALS (8 sets, daily range): BP systolic 88–122; BP diastolic 57–85; PULSE 72–92; RESP 16–18; O2SAT 93–99
[2017-06-24] MEDS: Sodium Chloride LOK Flush 10 mL Syringe IVFLUSH SCH ×2 (00:19→08:08)
--- NOTE | 2017-06-24 06:36 | NUR ---
Uneventful Night: Pt had an uneventful night, no c/o pain, chest pain or SOB. Pt slept most of the night, pleasant and cooperative with care.
--- NOTE | 2017-06-24 06:37 | NUR ---
Imuran: 2100 dose of Imuran withheld, pt states she takes it in the am. Will pass to dayshift to have this med retimed.
[2017-06-24 06:46] LABS: BASOPHILS % (AUTO) 0.2 % (0-3); EOSINOPHILS % (AUTO) 1.7 % (0-5); MONOCYTES % (AUTO) 12.3 % (4-12); Mean Corpuscular Hemoglobin 34.3 pg (27.0-35.0); Mean Corpuscular Volume 102.1 fL (81-100); Platelet Count 230 bil/L (150-400)
[2017-06-24 06:49] LABS: INR 1.35 ratio
[2017-06-24 06:56] LABS: Phosphorus 3.4 mg/dL (2.5-4.9)
[2017-06-24 07:09] LABS: Vitamin B12 601 pg/mL (211-946)
[2017-06-24] MEDS ORDERED: levoFLOXacin 500 mg Tablet PO ONE (08:00)
[2017-06-24] MEDS: Heparin 5,000 Unit/mL Inj SUBQ SCH (08:07)
[2017-06-24] MEDS ORDERED: MeTOProlol XL 50 mg ER24 Tablet PO SCH (08:30)
[2017-06-24] MEDS ORDERED: Furosemide 10 mg/mL 2 mL Inj IVPUSH SCH (08:30)
[2017-06-24] MEDS ORDERED: predniSONE 1 mg Tablet PO SCH (08:30)
--- NOTE | 2017-06-24 11:16 | DRSVH ---
[facility] [address] [place] [address] Echocardiogram Report Name: ROSAURA GAXIOLA te: 06/24/2017 Height: 63 in Hospital Exam Location: [facility] Weight: 13 7 lb Gender: Female BSA: 1.6 m2 : 1935 Age: 82 yrs BP: 122/85 mmHg Reason For Study: CHF Ordering Physician: JANINAIST [facility] Performed By: Kaykay Morales Referring Physician: Javad Moe Interpretation Summary The left ventricle is normal in size, wall thickness, and systolic function without any focal wall motion abnormalities with the ejection fraction visually estimated to be 50-60% with considerable [id number]-he-[id number] variability due to atrial fibrillation and grossly appears unchanged compared to the previous study. The right ventricle is grossly normal size with systolic function at the lower limits of normal but unchanged compared to the previous study. The right ventricular systolic pressure is estimated at least 31 mmHg assuming a right atrial pressure of 3 mm Hg, and is likely similar to the previous study. The left atrium is severely dilated and the right atrium is moderate to severely dilated but both are grossly unchanged compared to the previous study. There is moderate to severe mitral annular calcification with mild anterior mitral valve prolapse producing probable moderate mitral regurgitation with an eccentric jet of mitral regurgitation that is directed posteriorly, although this is difficult to quantitate because of the eccentricity of the jet and more significant mitral regurgitation cannot be excluded but it appears less impressive compared to the previous study. There is mild tricuspid regurgitation and trace aortic regurgitation that also appear less prominent compared to the previous study. The patient was in atrial fibrillation with heart rates between 82 and 118 bpm during the exam. Procedure: A two-dimensional transthoracic echocardiogram with color flow and Doppler was performed in limited views only. The study quality was technically adequate. Comparison is made with the echocardiogram of 05/24/17. The patient was in atrial fibrillation with heart rates between 82 and 118 bpm during the exam. Left Ventricle: The left ventricle is normal in size, wall thickness, and systolic function without any focal wall motion abnormalities. Left ventricular ejection fraction is estimated to be 50-60%. This is unchanged compared to the previous study. Right Ventricle: The right ventricle is grossly normal size. Right ventricular systolic function is at the lower limits of normal. This is unchanged compared to the previous study. Atria: The left atrium is severely dilated. The right atrium is moderate to severely dilated. This is unchanged compared to the previous study. Mitral Valve: There is moderate to severe mitral annular calcification. The mitral valve leaflets appear moderately thickened, but open well. There is prolapse of the anterior mitral valve leaflet. There is mild mitral valve prolapse. There is moderate mitral regurgitation. There is an eccentric jet of mitral regurgitation that is directed posteriorly. But this is difficult to quantitate because of the eccentric jet and more significant mitral regurgitation cannot be excluded. This is less impressive compared to the previous study. Aortic Valve: The aortic valve is trileaflet. The aortic valve is mildly calcified. The aortic valve opens well. There is trace aortic regurgitation. This is less prominent compared to the previous study. Tricuspid Valve: The tricuspid valve is normal. There is mild tricuspid regurgitation. This is less prominent compared to the previous study. The right ventricular systolic pressure is estimated at least 31 mmHg assuming a right atrial pressure of 3 mm Hg. This is unchanged compared to the previous study. Great Vessels: The IVC is of normal diameter and collapses greater than 50% with a sniff. This suggests a low right atrial pressure of 3 mm Hg. Pericardium/ Pleura There is no pericardial effusion. There is no pleural effusion. MMode/2D Measurements & Calculations LVIDd: 5.4 cm LVIDs: 4.3 cm LA A2 area: 25.6 cm FS: 21.3 % LA A4 area: 25.1 cm IVSd: 1.0 cm LA length (vol): 4.9 cm LVPWd: 1.1 cm LA vol: 110.5 ml LA vol index: 67.1 ml/m IVC diam: 1.5 cm RA long axis: 5.5 cm LV stark. diameter/BSA (cm/m^2): 3.3 RA area: 20.8 cm RA vol: 66.6 ml RA : 40.4 ml/m2 LV sys. diameter/BSA (cm/m^2): 2.6 Doppler Measurements & Calculations AI P1/2t: 453.4 msec TR max chang: 264.6 cm/sec AI dec slope: 273.1 cm/sec2 TR max P.0 mmHg Reading Physician:11:15 AM
--- NOTE | 2017-06-24 14:03 | PCM.DIMED ---
Discharge Instructions Date of Service Jun 24, 2017 Dates of Hospitalization Jun 23, 2017 at 15:40 Discharge Diagnosis Discharge Diagnosis Diastolic CHF Diet Discharge Diet: Low fat, Low Sodium Activity Discharge Activity: No restrictions Call your provider Call your provider for: Shortness of breath, Other (weight gain of 2 pounds or more, weigh daily and keep a written record) Patient Instructions Follow-up with PCP in: 1 week Attending's Statement Resume home health with [facility] - nursing and physical therapy Prisca Tubbs MD Jun 24, 2017 14:03
[2017-06-24] MEDS ORDERED: FUR20 PO (14:07)
[2017-06-24] MEDS ORDERED: LEVO500T20 PO (14:08)
--- NOTE | 2017-06-24 14:56 | NUR ---
Social Work- Initial Assessment/Discharge/ Multidisciplinary Rounds Data: See Initial Assessment and Advance Directive Intervention for additional information. Pt discussed in rounds. Pt to discharge home today, discharge orders are active. Resumption of [facility] services instructed in discharge. Pt is a 82 year old female admitted for CHF exacerbation per H&P. Pt's insurance is [facility] and [facility] [employer]. Pt's PCP is Preston Juarez MD. Pt's readmit risk score is 4/8 high risk. Pt is a readmit, admitted mid May and d/c 05/26 2017 with [facility] RN PT services. MORGAN met with pt and sofiya Navarro at bedside regarding discharge plan, SW role explained. Pt's designated freezer person is sofiya Bennett [phone]. Pt alert and oriented x3. Pt's capacity for self-care assessed. Pt resides in [facility] in [place], [facility]. Pt is mostly independent with ADLs and self-care, though she does receive assistance with medications, bathing, and housekeeping through [facility]. Pt uses a four wheel walker at baseline. Pt is open with [facility] RN PT services. Pt has history at [facility]. Pt has CPR Advance Directive on file. Pt has [facility] at home for approximately 50 hours each month, CM is Adrianna Tomlinson. Faxed clinicals to pt's [facility] JOSE Tomlinson. MORGAN provided Discharge planning Checklist and requested that pt contact [facility] if needs identified. MORGAN provided phone number and plan on whiteboard. T/C to [place] [facility] who is aware of and agreeable to pt's discharge. Pt to d/c home with her daughter to transport via POV, resume [facility] RN PT services. No additional d/c needs. Assessment: Pt who medically requires [facility] RN PT at discharge. Plan: Pt to d/c home with her daughter to transport via POV, resume [facility] RN PT services. No additional d/c needs. SALIMA Brooks Addendum: 06/24/17 at 1500 by HARIKA VAZ Amended: Links added.
--- NOTE | 2017-06-24 15:25 | NUR ---
Desaturation with ambulation Pt ambulated approximately 20 feet on RA with CPOX and desaturated from 96% to 79% momentarily but maintained 85-86% Sp02 with ambulation. RR rate increased from 18 to 24 BPM.
--- NOTE | 2017-06-24 16:05 | NUR ---
SaO2 on RA 96% pt then amb ~ 30 feet and SaO2 dropped to 85% on RA. Pt placed on 2 lpm nasal cannula with recovery time of 3 minutes with SaO2 increasing to 95%. and pt able to finish amb to room.
--- NOTE | 2017-06-24 16:19 | NUR ---
discharge Went over discharge instructions with patient and her daughter. Medication faxed to pharmacy per MD. Iv removed. Home O2 set up. Pt left in wheelchair. No s/s of distress.
--- NOTE | 2017-06-24 16:22 | PCM.DC.MED ---
Discharge Summary Date of Service Jun 24, 2017 Dates of Hospitalization Date of Hospital Admission Jun 23, 2017 at 15:40 Date of Discharge: Jun 24, 2017 Providers: Admitting Physician: Lesly Lopez DO Primary Care Physician: Preston Juarez MD Attending Physician: Mariann Mendiola MD Diagnosis at Time of Discharge Diagnosis at Time of Discharge Diastolic CHF Procedures XRay, CTs & MRIs PROCEDURE: X-RAY CHEST ONE VIEW, PORTABLE ([id number]) IMPRESSION: 1. No acute cardiopulmonary abnormality. Dictated by: Celestino Linares M.D. on 06/23/2017 at 13:18 ECG 12 Lead ECG Interpretation: Atrial fibrillation, rate 101 LVH with strain Unchanged from previous EKG on 05/23/17 Time: 12:43 Interpreted by: ED physician Cardiac Echo Impression Echocardiogram on 05/24/2017 Interpretation Summary The ejection fraction is estimated to be 55-60%. The left atrium is severely dilated. There is moderate mitral annular calcification. There is mild mitral valve prolapse. There is severe mitral regurgitation. Flow reversal noted in pulmonary veins consistent with significant mitral regurgitation. The aortic valve is mildly calcified. There is no hemodynamically significant valvular aortic stenosis. There is mild aortic regurgitation. There is mild to moderate tricuspid regurgitation. Mild pulmonary artery dilation. Compared to prior echo report on 2014, changes are noted. Brief History Karin Jean Baptiste is an 82-year-old female with a past medical history significant for paroxysmal atrial fibrillation not on anticoagulation due to history of abdominal hematoma, prior bilateral pulmonary emboli, hypertension, autoimmune hepatitis of the liver, hypothyroidism who presents to the ED with complaints of chest tightness and shortness of breath that started about 3 days ago and has been progressively getting worse. She states that she feels as if "an elephant is sitting on her chest". The pain did not radiate elsewhere in her body. In addition, she notes that today, she was diaphoretic, unable to speak full sentences because of shortness of breath, dizzy, and felt like she was going to "pass out." She also notes that the swelling on her legs bilaterally have been worse, especially in the morning. She has associated dyspnea on exertion, orthopnea, and fatigue. She denies vision changes, sore throat, congestion, chest pain, palpitations, paroxysmal nocturnal dyspnea, abdominal pain, nausea, vomiting, diarrhea or constipation. She was recently hospitalized on 05/23/17 for CHF exacerbation and SOB and was sent home with 20 mg po Lasix. Patient hasn't been weighing herself lately but daughter notes that she has probably gained about 2-3 lbs since she was last discharged. Daughter notes that although the patient is not a candidate for warfarin due to her history of abdominal hematoma, she will be undergoing a procedure for a watchman device at [facility] for CVA prophylaxis from left atrial appendage blood clots. As a result, she was placed on warfarin temporarily 30 days prior to surgery and then again 45 days after that procedure. Her INR and warfarin dosage is being followed closely by her Racing Secretary And Handicapper at [facility]. In addition, she has a history of recurrent urinary tract infection. She was just recently started on antibiotics by her PCP, Dr. Juarez. Based on clinic chart notes, her urine culture on 06/16/17 was positive for Klebsiella pneumonia sensitive to Levofloxacin. She is now on day 3 out of 5 of Levofloxacin. Vital signs in the ED: Temperature 36.6. Pulse 101. Respiratory rate 17. Blood pressure 99/66. Pulse ox 100% on room air. CBC unremarkable. BUN/ Cr elevated at 30/1.24. Troponin negative X1. EKG showed A fib with rate of 101, unchanged from previous EKG on 05/23/17. Age-adjusted D-dimer negative. BNP elevated at 2437. Patient received 20 mg IV lasix in the ED. PCP is Dr. Juarez. Racing Secretary And Handicapper is Dr. Wright at [facility]. . Hospital Course Acute on chronic diastolic congestive heart failure with preserved ejection fraction - Patient presented with worsening chest pain, SOB, increased weight and LE edema - The patient has a history of LV relaxation abnormality and diastolic CHF based on ECHO on 05/2017. Ejection fraction is estimated to be 55-60%. - limited echocardiogram done on day of discharge with no significant changes from the one last month - EKG demonstrated atrial fibrillation without signs of ischemia and troponin negative. - BNP 2437. -Patient received 20 mg IV lasix in the ED - Increase diuresis from Lasix PO 20 mg to Lasix IV 20 mg daily while inpatient , only down about 0.3 kg for weight, we'll increase her oral dose to 40 mg - Continued metoprolol succinate 50 mg daily. - Symptomatically she is improved, feels back to her usual self and is anxious to be discharged - Ambulated in the white on room air and O2 saturations do fall to the 80s, back to the 90s with 2 L, so this was prescribed for her - Encouraged her to weigh herself daily at home and keep a written record - Early follow-up with her PCP to make a plan regarding her diuretics and weights Recent acute urinary tract infection, present on admission. - Patient was recently diagnosed with urinary tract infection in the outpatient setting. -Urine Culture shows Klebsiella pneumonia, sensitive to Levofloxacin - Patient was Started on Levofloxacin 500 mg daily as an outpatient. She is currently on day 3 out of 5. Daughter is concerned, wondering if she needs an antibiotic for more longer term to suppress infection, especially since she's having a cardiac procedure soon - We'll give an additional 5 day supply of Levaquin and then this week she should see her PCP to discuss further antibiotic Acute kidney injury, present on admission -Likely secondary from UTI -BUN/ CR-30/1.24 -Creatinine 1.15 on the day of discharge Chronic problems: Paroxysmal atrial fibrillation, present on admission. Stable. - The patient has a history of abdominal hematoma and has been told to stop warfarin. However, she will be undergoing a procedure for a watchman device at [facility] for CVA prophylaxis from left atrial appendage blood clots. As a result, she was placed on warfarin temporarily 30 days prior to surgery -INR is being followed closely by Cardiology at [facility]. We Will continue with the same dose of warfarin 5mg daily - Continue metoprolol succinate 50 mg daily. Currently rate controlled. Hypertension, present on admission. Stable. - Continue metoprolol succinate 50 mg twice daily and verapamil 120 mg daily ( not clear if patient is on this medication and needs to be re-verified)!! History of autoimmune hepatitis - Continue prednisone and azathioprine therapy. History of Hypothyroidism, presumed stable -Patient notes that she does not take levothyroxine Exam Vital Signs (Last) Date Time Temp Pulse Resp B/P Pulse Ox O2 Delivery O2 Flow Rate FiO2 06/24/17 15:16 86 18 114/71 96 06/24/17 15:15 Room Air 06/24/17 12:57 36.4 06/24/17 00:15 2.00 Exam General: Alert and oriented, no acute distress Heart: Regular Lungs: Clear, initial mild inspiratory crackle in the bases resolve after deep breath Abdomen: Soft, non-tender Extremities: Ankles appear puffy but no pedal edema Test 06/23/17 13:16 06/23/17 17:50 06/24/17 00:06 06/24/17 06:18 D-Dimer 0.58mg/L FEU (<0.50) Pro-B-Type Natriuretic Peptide 2437pg/mL (0-738) Activated Partial Thromboplast Time 30.3sec (22.8-33.0) Hemoglobin A1c 5.7% (4.8-5.6) Uric Acid 6.4mg/dL (2.6-7.2) Magnesium Level 1.8mg/dL (1.6-2.6) Prealbumin 27mg/dL (20-40) Vitamin B12 Level 601pg/mL (211-946) Folate ng/mL (.) Thyroid Stimulating Hormone (TSH) 3.670uIU/mL (0.450-4.500) Troponin T 0.010ug/L (0.0-0.011) White Blood Count 6.5th/mm3 (3.8-10.1) Red Blood Count 3.88mil/mm3 (3.90-5.20) Hemoglobin 13.3g/dL (12.0-15.6) Hematocrit 39.6% (35.0-46.0) Mean Corpuscular Volume 102.1fL (81-100) Mean Corpuscular Hemoglobin 34.3pg (27.0-35.0) Mean Corpuscular Hemoglobin Concent 33.6% (32.0-37.0) Red Cell Distribution Width 14.5% (12.3-15.4) Platelet Count 230bil/L (150-400) Neutrophils (%) (Auto) 62.0% (40-74) Lymphocytes (%) (Auto) 23.6% (14-46) Monocytes (%) (Auto) 12.3% (4-12) Eosinophils (%) (Auto) 1.7% (0-5) Basophils (%) (Auto) 0.2% (0-3) Prothrombin Time 14.5sec (8.1-12.5) Prothromb Time International Ratio 1.35ratio Sodium Level 137mEq/L (134-144) Potassium Level 3.6mEq/L (3.5-5.2) Chloride Level 96mEq/L (97-108) Carbon Dioxide Level 28mmol/L (18-29) Blood Urea Nitrogen 27mg/dL (8-27) Creatinine 1.15mg/dL (0.57-1.00) Estimat Glomerular Filtration Rate 65mL/min (>59) Glucose Level 81mg/dL (60-99) Lactic Acid Level 1.3mmol/L (0.4-2.0) Calcium Level 9.0mg/dL (8.5-10.1) Phosphorus Level 3.4mg/dL (2.5-4.9) Total Bilirubin 0.4mg/dL (0.0-1.2) Aspartate Amino Transf (AST/SGOT) 20U/L (0-50) Alanine Aminotransferase (ALT/SGPT) 10U/L (0-32) Alkaline Phosphatase 50U/L (25-165) Total Protein 6.8g/dL (6.4-8.4) Albumin 3.5g/dL (3.4-5.0) Triglycerides Level 125mg/dL (0-149) Cholesterol Level 209mg/dL (100-199) LDL Cholesterol, Calculated 131.000mg/dL (0-99) VLDL Cholesterol 25.000mg/dL HDL Cholesterol 53mg/dL (>39) Cholesterol/HDL Ratio 3.94 (0.0-4.4) Procalcitonin 0.07ng/mL (0.00-0.08) Discharge Medications Discharge Medications Azathioprine (Azathioprine) 50 Mg Tablet 50 MG PO DAILY (Reported) Furosemide (Furosemide) 20 Mg Tab 40 MG PO DAILY Prescribed by: MARIANN MENDIOLA MD Levofloxacin (Levaquin) 500 Mg Tablet 500 MG PO DAILY Prescribed by: MARIANN MENDIOLA MD Metoprolol Succinate ER (Metoprolol Succinate ER) 50 Mg Tab.er.24h 50 MG PO DAILY (Reported) PredniSONE (PredniSONE) 1 Mg Tab 3 MG PO DAILY (Reported) Warfarin Sodium (Warfarin Sodium) 2.5 Mg Tablet 5 MG PO HS (Reported) As needed Acetaminophen (Acetaminophen) 325 Mg Tablet 650 MG PO Q4H PRN PRN For Pain ( Reported) Followup Plan Discharge Diet: Low fat, Low Sodium Discharge Activity: No restrictions Follow-up with PCP in: 1 week Mariann Mendiola MD Jun 24, 2017 16:22
== END 2017-06-24 16:19 | disposition home health service (06) | DRG 292 ==
LOC: SED 12:16 → MPC 15:40
PROVIDERS: ADMIT Neuromusculoskeletal Medicine & OMM; ATTEND Internal Medicine
DX: I50.33 Acute on chronic diastolic (congestive) heart failure (principal); N39.0 Urinary tract infection, site not specified; N17.9 Acute kidney failure, unspecified; I48.2 Chronic atrial fibrillation; E03.9 Hypothyroidism, unspecified; I10 Essential (primary) hypertension; E78.5 Hyperlipidemia, unspecified; I48.0 Paroxysmal atrial fibrillation; K75.4 Autoimmune hepatitis; Z88.0 Allergy status to penicillin; Z86.711 Personal history of pulmonary embolism; Z79.01 Long term (current) use of anticoagulants